=== PATIENT | female | born 1955 | race Caucasian/White ===

== ENCOUNTER 2016-12-27 07:57 | Day surgery (SDC) | payer BC ==
[2016-12-21 15:37] VITALS: BMI 32.9
[~2016-12-27 07:57] MED LIST: LACTATED RINGERS 1,000 ML IV SCH
[2016-12-27 09:00] VITALS: TEMP 97.9
[2016-12-27] MEDS ORDERED: LIDOCAINE 1% 20 ML VIAL (10MG/ML) FOR IV START INTRADERMA ONE (09:09)
[2016-12-27] MEDS ORDERED: ONDANSETRON 4 MG/2 ML VIAL ONE (09:21)
[2016-12-27] MEDS ORDERED: PROPOFOL 10 MG/ML 20 ML VIAL IV ONE (09:21)
[2016-12-27] MEDS ORDERED: MIDAZOLAM 2 MG/2 ML VIAL ONE (09:21)
[2016-12-27] MEDS ORDERED: fentaNYL (PF) 50 MCG/ML 2 ML AMP ONE (09:21)
[2016-12-27 09:49] VITALS: RESP 16
--- NOTE | 2016-12-27 09:53 | P.PCN ---
Date of Procedure: 12/27/16 Procedure(s) Performed: Procedure: Colonoscopy and polypectomy. Preoperative diagnosis: Screening for neoplasia, patient has family history of colon cancer in her father. Postoperative diagnosis: 1. Mild sigmoid diverticulosis with no evidence of acute diverticulitis or strictures. 2. Small distal sigmoid polyp snared but no large polyps or cancer. Preparation: HalfLytely prep. Sedation: Was provided by anesthesia. Brief clinical history: The patient is a 61-year-old female who is scheduled for this evaluation for screening for neoplasia because of family history of colon cancer in her father. The patient had a prior colonoscopy around 7 years ago. At this time, she has no abdominal complaints, bleeding or anemia. Procedure: With the patient on her left lateral decubitus position and after informed consent and adequate sedation, the perianal area was inspected and it did not show any fissures or fistulas. There were no masses felt on digital rectal examination. The Olympus CFQ 160L video colonoscope was then inserted in the rectum in the usual fashion and advanced to the cecum. There were few diverticular orifices seen scattered in the sigmoid but I saw no evidence of acute diverticulitis or strictures. In the distal sigmoid, there was a small polyp which was snared and retrieved by suction but there were no large polyps or cancer. I retroflexed endoscope in the rectum before the endoscope was withdrawn. The patient tolerated the procedure well. Plan: The patient was reassured. Discussed dietary measures. We will await pathology results. She will follow-up with you as planned and I recommended a repeat exam in 5 years.
[2016-12-27 10:06] VITALS: BP 133/64; PULSE 48
== END 2016-12-27 10:35 | disposition home or self-care (01) ==
LOC: ORWHC2ENDO 07:57
DX: Z12.11 Encounter for screening for malignant neoplasm of colon (principal); D12.5 Benign neoplasm of sigmoid colon; K57.30 Diverticulosis of large intestine without perforation or abscess without bleeding; I10 Essential (primary) hypertension; Q87.81 Alport syndrome; Z80.0 Family history of malignant neoplasm of digestive organs; Z79.1 Long term (current) use of non-steroidal anti-inflammatories (NSAID); Z79.899 Other long term (current) drug therapy; Z90.710 Acquired absence of both cervix and uterus
CPT/HCPCS: 88305; 45385; J2250; J2405; J3010; J2704; 99153

== ENCOUNTER 2017-12-25 22:45 | Inpatient (IN) | payer BC ==
[2017-12-25] MEDS ORDERED: SODIUM CHLORIDE 0.9% 1,000 ML IV STA (23:11)
[2017-12-25] MEDS ORDERED: ONDANSETRON 4 MG/2 ML VIAL IVP STA (23:11)
[2017-12-25] MEDS ORDERED: cefTRIAXone IN SWFI 1,000 MG/10 ML SYRINGE IVP STA (23:11)
--- NOTE | 2017-12-25 23:16 | ED ---
General Adult HPI - General Source: patient, family, RN notes reviewed Mode of arrival: wheelchair Limitations: no limitations <Jenn Posey - Last Filed: 12/26/17 02:26> <Vitaly Otoole - Last Filed: 12/28/17 09:54> - General Chief complaint: Recheck/Abnormal Lab/Rx Stated complaint: Dehydration Time Seen by Provider: 12/25/17 23:02 - History of Present Illness Initial comments: 62-year-old female presents to the emergency Department chief complaint of chemo side effects. The patient started her first round of chemo this week. Over the weekend she's not been able to tolerate any food she's only been drinking and having insurance. She just is progressively gotten more and more sick and warm or tired today. She denies any fever chills. They were concerned because she just seems to be getting worse and worse so they thought that they should be evaluated. This is her first week of chemo. She sees Dr. Gusman and has an appointment in the morning. She is currently being treated with antibiotics for UTI. Patient denies any recent fever, chills, shortness of breath, chest pain, back pain, abdominal pain, nausea vomiting, numbness or tingling, dysuria or hematuria, constipation or diarrhea, headaches or visual changes, or any other current symptoms. (Jenn Posey) - Related Data Home Medications Medication Instructions Recorded Confirmed Calcium Carbonate [Calcium] 600 mg PO DAILY 12/21/16 12/21/16 Cranberry Fruit Extract [Cranberry] 500 mg PO DAILY 12/21/16 12/21/16 Fish Oil/Dha/Epa [Fish Oil 1,200 1 each PO DAILY 12/21/16 12/21/16 mg Fish Oil] Ibuprofen [Motrin] 600 mg PO HS 12/21/16 12/27/16 Multivitamins, Thera [Multivitamin] 1 tab PO DAILY 12/21/16 12/21/16 Naproxen Sodium [Aleve] 220 mg PO DAILY 12/21/16 12/21/16 Cetirizine HCl [Zyrtec] 10 mg PO DAILY 12/26/17 12/26/17 LORazepam [Ativan] 1 mg PO QID 12/26/17 12/26/17 Lactulose 10 gm PO TID 12/26/17 12/26/17 Morphine Sulfate ER [Ms Contin 30 mg PO Q12HR 12/26/17 12/26/17 30Mg] Morphine Sulfate Ir [MSIR] 15 mg PO QID PRN 12/26/17 12/26/17 Ondansetron HCl [Ondansetron HCl] 8 mg PO TID PRN 12/26/17 12/26/17 Allergies Allergy/AdvReac Type Severity Reaction Status Date / Time No Known Allergies Allergy Verified 12/21/16 15:13 Review of Systems ROS Other: All systems not noted in ROS Statement are negative. <Jenn Posey - Last Filed: 12/26/17 02:26> ROS Other: All systems not noted in ROS Statement are negative. <Vitaly Otoole - Last Filed: 12/28/17 09:54> ROS Statement: Those systems with pertinent positive or pertinent negative responses have been documented in the HPI. Past Medical History Past Medical History: Cancer, Hypertension, Renal Disease Additional Past Medical History / Comment(s): Alports syndrome,carcinoma,chemo port History of Any Multi-Drug Resistant Organisms: None Reported Past Surgical History: Hysterectomy Additional Past Surgical History / Comment(s): D&C Past Anesthesia/Blood Transfusion Reactions: Motion Sickness, Postoperative Nausea & Vomiting (PONV) Past Psychological History: No Psychological Hx Reported Smoking Status: Never smoker Past Alcohol Use History: None Reported Past Drug Use History: None Reported - Past Family History Mother Family Medical History: Cancer Additional Family Medical History / Comment(s): colon cancer Father Family Medical History: Cancer <Jenn Posey - Last Filed: 12/26/17 02:26> General Exam Limitations: no limitations <Jenn Posey - Last Filed: 12/26/17 02:26> <Vitaly Otoole - Last Filed: 12/28/17 09:54> - General Exam Comments Initial Comments: General: The patient is awake and alert, in no distress, and does not appear acutely ill. Eye: Pupils are equal, round and reactive to light, extra-ocular movements are intact; there is normal conjunctiva bilaterally. No signs of icterus. Ears, nose, mouth and throat: There are moist mucous membranes. Neck: The neck is supple, there is no tenderness . Cardiovascular: There is a regular rate and rhythm. No murmur, rub or gallop is appreciated. Respiratory: Lungs are clear to auscultation, respirations are non-labored, breath sounds are equal. No wheezes, stridor, rales, or rhonchi. Gastrointestinal: Soft, non-distended, non-tender abdomen without masses or organomegaly noted. There is no rebound or guarding present. No CVA tenderness. Bowel sounds are unremarkable. Back: There is no tenderness to palpation in the midline. There is no obvious deformity. No rashes noted. Musculoskeletal: Normal ROM, no tenderness, There is no pedal edema. There is no calf tenderness or swelling. Sensation intact. Pulses equal bilaterally 2+. Neurological: CN II-XII intact, There are no obvious motor or sensory deficits. Coordination appears grossly intact. Speech is normal. Skin: Skin is warm and dry and no rashes or lesions are noted. Psychiatric: Cooperative, appropriate mood & affect, normal judgment. (Jenn Posey) Vital Signs 12/25/17 12/26/17 12/26/17 22:51 00:16 01:52 Temperature 97.1 F L 101.3 F H Pulse Rate 72 121 H 118 H Respiratory 16 20 20 Rate Blood Pressure 100/56 97/56 91/55 O2 Sat by Pulse 96 95 95 Oximetry 12/26/17 12/26/17 02:23 03:04 Temperature 98.8 F Pulse Rate 116 H 111 H Respiratory 20 20 Rate Blood Pressure 93/66 92/51 O2 Sat by Pulse 96 94 L Oximetry Medical Decision Making - Lab Data Result diagrams: 12/25/17 23:50 12/25/17 23:50 <Jenn Posey - Last Filed: 12/26/17 02:26> - Lab Data Result diagrams: 12/28/17 08:06 12/27/17 08:08 <Vitaly Otoole - Last Filed: 12/28/17 09:54> - Medical Decision Making 62-year-old female presents emergency 5 chief complaint of dehydration. This time patient does appear to be septic. This time antibiotics have been started. We did give her fluids as well. At this time we will admit the patient for continued care. Discussed the patient and family is in agreement with plan. (Jenn Posey) I saw this patient in conjunction with the physician placement assistant. I performed independent history and physical exam. Agree with case management. (Vitaly Otoole) - Lab Data Lab Results 12/25/17 12/25/17 12/25/17 Range/Units 23:50 23:50 23:50 WBC 0.4 L* (3.8-10.6) k/uL RBC 3.37 L (3.80-5.40) m/uL Hgb 9.5 L (11.4-16.0) gm/dL Hct 29.8 L (34.0-46.0) % MCV 88.3 (80.0-100.0) fL MCH 28.2 (25.0-35.0) pg MCHC 31.9 (31.0-37.0) g/dL RDW 12.3 (11.5-15.5) % Plt Count 10 L* (150-450) k/uL Neutrophils % [employer] Lymphocytes % [employer] Monocytes % [employer] Eosinophils % [employer] Basophils % [employer] Neutrophils # [employer]ER Lymphocytes # [employer] Monocytes # [employer] Eosinophils # [employer] Basophils # [employer] Differential Comment Manual Slide Review Performed Sodium 135 L (137-145) mmol/L Potassium 3.8 (3.5-5.1) mmol/L Chloride 102 (98-107) mmol/L Carbon Dioxide 20 L (22-30) mmol/L Anion Gap 13 mmol/L BUN 40 H (7-17) mg/dL Creatinine 2.00 H (0.52-1.04) mg/dL Est GFR (MDRD) Af Amer 31 (>60 ml/min/1.73 sqM) Est GFR (MDRD) Non-Af 25 (>60 ml/min/1.73 sqM) Glucose 123 H (74-99) mg/dL Plasma Lactic Acid Kw[place] (0.7-2.0) mmol/L Calcium 8.4 (8.4-10.2) mg/dL Total Bilirubin 0.4 (0.2-1.3) mg/dL AST 75 H (14-36) U/L ALT 69 H (9-52) U/L Alkaline Phosphatase 76 (38-126) U/L Total Protein 5.5 L (6.3-8.2) g/dL Albumin 2.7 L (3.5-5.0) g/dL Urine Color Urine Appearance (Clear) Urine pH (5.0-8.0) Ur Specific [place] (1.001-1.035) Urine Protein (Negative) Urine Glucose (UA) (Negative) Urine Ketones (Negative) Urine Blood (Negative) Urine Nitrite (Negative) Urine Bilirubin (Negative) Urine Urobilinogen (<2.0) mg/dL Ur Leukocyte Esterase (Negative) Urine RBC (0-5) /hpf Urine WBC (0-5) /hpf Ur Squamous Epith Cells (0-4) /hpf Amorphous Sediment (None) /hpf Urine Bacteria (None) /hpf Hyaline Casts (0-2) /lpf Granular Casts (0) /lpf Urine Mucus (None) /hpf Influenza Type A RNA Not Detected (Not Detectd) Influenza Type B (PCR) Not Detected (Not Detectd) 12/25/17 12/26/17 Range/Units 23:50 01:28 WBC (3.8-10.6) k/uL RBC (3.80-5.40) m/uL Hgb (11.4-16.0) gm/dL Hct (34.0-46.0) % MCV (80.0-100.0) fL MCH (25.0-35.0) pg MCHC (31.0-37.0) g/dL RDW (11.5-15.5) % Plt Count (150-450) k/uL Neutrophils % Lymphocytes % Monocytes % Eosinophils % Basophils % Neutrophils # Lymphocytes # Monocytes # Eosinophils # Basophils # Differential Comment Manual Slide Review Sodium (137-145) mmol/L Potassium (3.5-5.1) mmol/L Chloride (98-107) mmol/L Carbon Dioxide (22-30) mmol/L Anion Gap mmol/L BUN (7-17) mg/dL Creatinine (0.52-1.04) mg/dL Est GFR (MDRD) Af Amer (>60 ml/min/1.73 sqM) Est GFR (MDRD) Non-Af (>60 ml/min/1.73 sqM) Glucose (74-99) mg/dL Plasma Lactic Acid [place] 1.5 (0.7-2.0) mmol/L Calcium (8.4-10.2) mg/dL Total Bilirubin (0.2-1.3) mg/dL AST (14-36) U/L ALT (9-52) U/L Alkaline Phosphatase (38-126) U/L Total Protein (6.3-8.2) g/dL Albumin (3.5-5.0) g/dL Urine Color Yellow Urine Appearance Turbid H (Clear) Urine pH 5.5 (5.0-8.0) Ur Specific [place] 1.017 (1.001-1.035) Urine Protein 2+ H (Negative) Urine Glucose (UA) 1+ H (Negative) Urine Ketones Negative (Negative) Urine Blood Moderate H (Negative) Urine Nitrite Negative (Negative) Urine Bilirubin Negative (Negative) Urine Urobilinogen 3.0 (<2.0) mg/dL Ur Leukocyte Esterase Negative (Negative) Urine RBC 6 H (0-5) /hpf Urine WBC 14 H (0-5) /hpf Ur Squamous Epith Cells 1 (0-4) /hpf Amorphous Sediment Rare H (None) /hpf Urine Bacteria Few H (None) /hpf Hyaline Casts 4 H (0-2) /lpf Granular Casts 43 (0) /lpf Urine Mucus Rare H (None) /hpf Influenza Type A RNA (Not Detectd) Influenza Type B (PCR) (Not Detectd) Disposition <Jenn Posey - Last Filed: 12/26/17 02:26> <Vitaly Otoole - Last Filed: 12/28/17 09:54> Clinical Impression: Febrile neutropenia, Acute renal injury, Hypotension Disposition: ADMITTED IP TO THIS HOSP Condition: Serious
[2017-12-26] MEDS ORDERED: ACETAMINOPHEN IV (For NPO) 1,000 MG in EMPTY BAG 1 BAG IVPB ONE (00:16)
[2017-12-26] MEDS ORDERED: SODIUM CHLORIDE 0.9% 1,000 ML IV STA ×2 (00:17→01:13)
[2017-12-26 00:21] LABS: HCT 29.8 % (34.0-46.0); HGB 9.5 gm/dL (11.4-16.0); MCH 28.2 pg (25.0-35.0); MCHC 31.9 g/dL (31.0-37.0); MCV 88.3 fL (80.0-100.0); Mean Platelet Volume 13.1; RBC 3.37 m/uL (3.80-5.40); RDW 12.3 % (11.5-15.5)
[2017-12-26 00:28] LABS: WBC 0.4 k/uL (3.8-10.6)
[2017-12-26 00:38] LABS: Albumin 2.7 g/dL (3.5-5.0); Calcium 8.4 mg/dL (8.4-10.2); Total Bilirubin 0.4 mg/dL (0.2-1.3); Total Protein 5.5 g/dL (6.3-8.2)
[2017-12-26 00:41] LABS: Potassium 3.8 mmol/L (3.5-5.1)
--- NOTE | 2017-12-26 00:44 | XR ---
EXAMINATION TYPE: XR chest 2V DATE OF EXAM: 12/26/2017 COMPARISON: NONE HISTORY: Cough TECHNIQUE: Frontal and lateral views of the chest are obtained. FINDINGS: There is some linear density at the lung bases and more on the right side. There is elevat ed right diaphragm. There is left central venous catheter with tip in the superior vena cava. There i s no heart failure. Heart size is normal. Bony thorax is intact. IMPRESSION: Subsegmental atelectasis at the lung bases and more on the right side. Elevated right di aphragm could relate to partial paralysis. No heart failure.
[2017-12-26 00:47] LABS: Platelet Count 10 k/uL (150-450)
[2017-12-26] MEDS ORDERED: CEFEPIME 1 GM in SODIUM CHLORIDE 0.9% 50 ML IVPB STA (01:12)
[2017-12-26] MEDS ORDERED: VANCOMYCIN IV PER PHARMACY 1 EACH MISC MISCELLANE PRN (01:12)
[2017-12-26] MEDS ORDERED: VANCOMYCIN 1,500 MG in SODIUM CHLORIDE 0.9% 250 ML IVPB STA (01:16)
[2017-12-26] MEDS ORDERED: IBUPROFEN 400 MG TAB PO PRN (01:55)
[2017-12-26] MEDS ORDERED: ACETAMINOPHEN TAB 325 MG TAB PO PRN (01:55)
[2017-12-26] MEDS ORDERED: NALOXONE 0.4 MG/ML 1 ML VIAL IV PRN (01:55)
[2017-12-26 01:56] LABS: Amorphous Sediment,Urine Rare /hpf; Appearance,Urine Turbid (Clear); Bacteria,Urine Few /hpf; Bilirubin,Urine Negative (Negative); Blood,Urine Moderate (Negative); Color,Urine Yellow; Glucose,Urine (UA) 1+ (Negative); Granular Casts,Urine 43 /lpf (0); Hyaline Casts,Urine 4 /lpf (0-2); Ketones,Urine Negative (Negative); Leukocyte Esterase,Urine Negative (Negative); Mucus,Urine Rare /hpf; Nitrite,Urine Negative (Negative); PH, Urine 5.5 (5.0-8.0); Protein,Urine 2+ (Negative); RBC,Urine 6 /hpf (0-5); Specific Gravity,Urine 1.017 (1.001-1.035); Squamous Epithelial Cell,Urine 1 /hpf (0-4); WBC,Urine 14 /hpf (0-5)
[2017-12-26 03:46] VITALS: RESP 16
[2017-12-26 03:51] VITALS: BMI 33.7
[2017-12-26] MEDS: SODIUM CHLORIDE 0.9% 1,000 ML IV SCH ×3 (06:01→16:06)
[2017-12-26] MEDS ORDERED: FAMOTIDINE 20 MG TAB PO SCH (09:00)
[2017-12-26] MEDS ORDERED: LISINOPRIL 10 MG TAB PO SCH (09:00)
[2017-12-26] MEDS: CALCIUM CARBONATE 500 MG CHEWABLE PO SCH (09:00)
[2017-12-26] MEDS: NON-FORMULARY DRUG (Cranberry Fruit Extract [Cranberry] 500 MG) PO SCH (09:01)
[2017-12-26] MEDS: MULTIVITAMINS, THERA 1 EACH TAB PO SCH (09:01)
[2017-12-26] MEDS: NON-FORMULARY DRUG (Fish Oil/Dha/Epa [Fish Oil 1,200 Mg Fish Oil] 1 EACH) PO SCH (09:01)
[2017-12-26] MEDS ORDERED: CEFEPIME 2 GM in SODIUM CHLORIDE 0.9% 50 ML IVPB SCH (10:00)
--- NOTE | 2017-12-26 12:12 | P.HPIM ---
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 Patient blood cultures came back positive for gram-negative rods although urine is not impressive patient denied any abdominal pain patient's vancomycin was discontinued and Cipro will be continued. Infectious disease will be consulted and repeat blood cultures today and tomorrow will be obtained patient is complaining of cough without any significant sputum production patient denied any dysuria suprapubic pain. 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 Patient's nonsteroidal anti-inflammatory cell lisinopril will be discussed new patient is hypotensive at this time Review of Systems REVIEW OF SYSTEMS: CONSTITUTIONAL: As mentioned in HPI HEENT: No recent visual problems or hearing problems. Denied any sore throat. CARDIOVASCULAR: No chest pain, orthopnea, PND, no palpitations, no syncope. PULMONARY: No shortness of breath, no cough, no hemoptysis. GASTROINTESTINAL: No diarrhea, no nausea, no vomiting, no abdominal pain. Normoactive bowel sounds. NEUROLOGICAL: No headaches, no weakness, no numbness. HEMATOLOGICAL: Denies any bleeding or petechiae. GENITOURINARY: Denies any burning micturition, frequency, or urgency. MUSCULOSKELETAL/RHEUMATOLOGICAL: Denies any joint pain, swelling, or any muscle pain. ENDOCRINE: Denies any polyuria or polydipsia. The rest of the 14-point review of systems is negative. Past Medical History Past Medical History: Cancer, Hypertension, Renal Disease Additional Past Medical History / Comment(s): Alports syndrome,carcinoma,chemo port History of Any Multi-Drug Resistant Organisms: None Reported Past Surgical History: Hysterectomy Additional Past Surgical History / Comment(s): D&C Past Anesthesia/Blood Transfusion Reactions: Motion Sickness, Postoperative Nausea & Vomiting (PONV) Past Psychological History: No Psychological Hx Reported Smoking Status: Never smoker Past Alcohol Use History: None Reported Past Drug Use History: None Reported - Past Family History Mother Family Medical History: Cancer Additional Family Medical History / Comment(s): colon cancer Father Family Medical History: Cancer Medications and Allergies Home Medications Medication Instructions Recorded Confirmed Type Calcium Carbonate [Calcium] 600 mg PO DAILY 12/21/16 12/21/16 History Cranberry Fruit Extract [Cranberry] 500 mg PO DAILY 12/21/16 12/21/16 History Fish Oil/Dha/Epa [Fish Oil 1,200 1 each PO DAILY 12/21/16 12/21/16 History mg Fish Oil] Ibuprofen [Motrin] 600 mg PO HS 12/21/16 12/27/16 History Multivitamins, Thera [Multivitamin] 1 tab PO DAILY 12/21/16 12/21/16 History Naproxen Sodium [Aleve] 220 mg PO DAILY 12/21/16 12/21/16 History Cetirizine HCl [Zyrtec] 10 mg PO DAILY 12/26/17 12/26/17 History LORazepam [Ativan] 1 mg PO QID 12/26/17 12/26/17 History Lactulose 10 gm PO TID 12/26/17 12/26/17 History Morphine Sulfate ER [Ms Contin 30 mg PO Q12HR 12/26/17 12/26/17 History 30Mg] Morphine Sulfate Ir [MSIR] 15 mg PO QID PRN 12/26/17 12/26/17 History Ondansetron HCl [Ondansetron HCl] 8 mg PO TID PRN 12/26/17 12/26/17 History Allergies Allergy/AdvReac Type Severity Reaction Status Date / Time No Known Allergies Allergy Verified 12/21/16 15:13 Physical Exam Vitals: Vital Signs Temp Pulse Pulse Resp BP BP Pulse Ox 12/26/17 07:00 99.7 F H 113 H 16 100/69 92 L 12/26/17 03:45 98.1 F 108 H 16 114/67 96 12/26/17 03:04 111 H 20 92/51 94 L 12/26/17 02:23 98.8 F 116 H 20 93/66 96 12/26/17 01:52 118 H 20 91/55 95 12/26/17 00:16 101.3 F H 121 H 20 97/56 95 12/25/17 22:51 97.1 F L 72 16 100/56 96 Intake and Output 12/25/17 12/26/17 12/26/17 22:59 06:59 14:59 Intake Total 2500 Output Total 400 Balance 2100 Intake: Amount of Fluid Infused ( 2500 ml) Output: Urine 400 Other: Weight 81.647 kg 81 kg PHYSICAL EXAMINATION: GENERAL: The patient is alert and oriented x3, quite tired and sleepy HEENT: Pupils are round and equally reacting to light. EOMI. No scleral icterus. No conjunctival pallor. Normocephalic, atraumatic. No pharyngeal erythema. No thyromegaly. CARDIOVASCULAR: S1 and S2 present. No murmurs, rubs, or gallops. PULMONARY: Chest is clear to auscultation, no wheezing or crackles. ABDOMEN: Soft, nontender, nondistended, normoactive bowel sounds. No palpable organomegaly. MUSCULOSKELETAL: No joint swelling or deformity. EXTREMITIES: No cyanosis, clubbing, or pedal edema. NEUROLOGICAL: Gross neurological examination did not reveal any focal deficits. SKIN: No rashes. Results CBC & Chem 7: 12/25/17 23:50 12/25/17 23:50 Labs: Abnormal Lab Results - Last 24 Hours (Table) 12/25/17 12/25/17 12/26/17 Range/Units 23:50 23:50 01:28 WBC 0.4 L* (3.8-10.6) k/uL RBC 3.37 L (3.80-5.40) m/uL Hgb 9.5 L (11.4-16.0) gm/dL Hct 29.8 L (34.0-46.0) % Plt Count 10 L* (150-450) k/uL Neutrophils # 0.3 L (1.3-7.7) k/uL Lymphocytes # 0.0 L (1.0-4.8) k/uL Sodium 135 L (137-145) mmol/L Carbon Dioxide 20 L (22-30) mmol/L BUN 40 H (7-17) mg/dL Creatinine 2.00 H (0.52-1.04) mg/dL Glucose 123 H (74-99) mg/dL AST 75 H (14-36) U/L ALT 69 H (9-52) U/L Total Protein 5.5 L (6.3-8.2) g/dL Albumin 2.7 L (3.5-5.0) g/dL Urine Appearance Turbid H (Clear) Urine Protein 2+ H (Negative) Urine Glucose (UA) 1+ H (Negative) Urine Blood Moderate H (Negative) Urine RBC 6 H (0-5) /hpf Urine WBC 14 H (0-5) /hpf Amorphous Sediment Rare H (None) /hpf Urine Bacteria Few H (None) /hpf Hyaline Casts 4 H (0-2) /lpf Urine Mucus Rare H (None) /hpf Microbiology - Last 24 Hours (Table) 12/25/17 23:50 Blood Culture Gram Stain - Preliminary Blood 12/25/17 23:50 Blood Culture - Final Blood Thrombosis Risk Factor Assmnt - Choose All That Apply Any of the Below Risk Factors Present?: No Each Risk Factor Represents 2 Points: Age 61-74 years Thrombosis Risk Factor Assessment Total Risk Factor Score: 2 Thrombosis Risk Factor Assessment Level: Low Risk Assessment and Plan Plan: - sepsis and bacteremia: Source is probably urinary tract infection since bacteremia with gram-negative rods. Repeat blood cultures will be obtained patient will be continued on cefepime and question will be discontinued infectious disease will be consulted concerning bacteremia. 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
[2017-12-26] MEDS: MORPHINE SULFATE IR 15 MG TABLET PO PRN (14:48)
--- NOTE | 2017-12-26 17:26 | P.CONS ---
History of Present Illness - Reason for Consult Consult date: 12/26/17 febrile neutropenia Requesting physician: Vitaly Otoole - Chief Complaint poor oral intake - History of Present Illness Pt is a very pleasant female pt of Dr. Kiran at [facility] and is following with Dr. Gusman who will monitor her counts and manage side effects. She presented with epigastric pain, x 1 year, CT and U/S in 2015 were not diagnostic , she had laparoscopic cholecystectomy in June 2017 that did not relieve symptoms. 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 She was seen by Surgical Oncologist Dr. Eliel Goddard at [facility] in [place] and not felt not to be a surgical candidate, seen by medical Oncologist Dr. Kiran, neodajuvant chemotherapy with AIM regimen , dose reduced ifosamide 25% due to poor renal function, was recommended pt is s /p 1st cycle with neulasta on 12/19. Over the last 4 days her appetite cont to decline, oral intake minimal, she was having SOB on exertion, nausea and a few episodes of diarrhea, she became weaker, she has had fever since admit, CBC reviewed from yesterday was very low. 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),carcinoma,chemo port History of Any Multi-Drug Resistant Organisms: None Reported Past Surgical History: Hysterectomy Additional Past Surgical History / Comment(s): D&C Past Anesthesia/Blood Transfusion Reactions: Motion Sickness, Postoperative Nausea & Vomiting (PONV) Past Psychological History: No Psychological Hx Reported Smoking Status: Never smoker Past Alcohol Use History: None Reported Past Drug Use History: None Reported - Past Family History Mother Family Medical History: Cancer Additional Family Medical History / Comment(s): colon cancer Father Family Medical History: Cancer Medications and Allergies Home Medications Medication Instructions Recorded Confirmed Type Calcium Carbonate [Calcium] 600 mg PO DAILY 12/21/16 12/21/16 History Cranberry Fruit Extract [Cranberry] 500 mg PO DAILY 12/21/16 12/21/16 History Fish Oil/Dha/Epa [Fish Oil 1,200 1 each PO DAILY 12/21/16 12/21/16 History mg Fish Oil] Ibuprofen [Motrin] 600 mg PO HS 12/21/16 12/27/16 History Multivitamins, Thera [Multivitamin] 1 tab PO DAILY 12/21/16 12/21/16 History Naproxen Sodium [Aleve] 220 mg PO DAILY 12/21/16 12/21/16 History Cetirizine HCl [Zyrtec] 10 mg PO DAILY 12/26/17 12/26/17 History LORazepam [Ativan] 1 mg PO QID 12/26/17 12/26/17 History Lactulose 10 gm PO TID 12/26/17 12/26/17 History Morphine Sulfate ER [Ms Contin 30 mg PO Q12HR 12/26/17 12/26/17 History 30Mg] Morphine Sulfate Ir [MSIR] 15 mg PO QID PRN 12/26/17 12/26/17 History Ondansetron HCl [Ondansetron HCl] 8 mg PO TID PRN 12/26/17 12/26/17 History Allergies Allergy/AdvReac Type Severity Reaction Status Date / Time No Known Allergies Allergy Verified 12/21/16 15:13 Physical Exam Vitals: Vital Signs Temp Pulse Pulse Resp BP BP Pulse Ox 12/26/17 16:15 99.3 F 101 H 118/69 12/26/17 15:00 98.1 F 108 H 16 110/73 94 L 12/26/17 07:00 99.7 F H 113 H 16 100/69 92 L 12/26/17 03:45 98.1 F 108 H 16 114/67 96 12/26/17 03:04 111 H 20 92/51 94 L 12/26/17 02:23 98.8 F 116 H 20 93/66 96 12/26/17 01:52 118 H 20 91/55 95 12/26/17 00:16 101.3 F H 121 H 20 97/56 95 12/25/17 22:51 97.1 F L 72 16 100/56 96 Intake and Output 12/26/17 12/26/17 12/26/17 06:59 14:59 22:59 Intake Total 2500 Output Total 400 Balance 2100 Intake: Amount of Fluid Infused ( 2500 ml) Output: Urine 400 Other: Voiding Method Indwelling Catheter # Voids 0 # Bowel Movements 0 Weight 81 kg - Constitutional General appearance: average body habitus, cooperative, mild distress - EENT Eyes: anicteric sclerae, normal appearance ENT: pharyngeal erythema - Neck Neck: no lymphadenopathy - Respiratory Respiratory: bilateral: CTA - Cardiovascular Heart sounds: normal: S1, S2 leg Peripheral Edema: bilateral: Trace - Gastrointestinal General gastrointestinal: no absent bowel sounds, no decreased bowel sounds, distended, no hepatomegaly, no hyperactive bowel sounds, normal bowel sounds, no organomegaly, no rigid, no scaphoid, soft, no splenomegaly, tenderness, no umbilical hernia, no ventral hernia - Integumentary Integumentary: normal - Neurologic Neurologic: CNII-XII intact - Musculoskeletal Musculoskeletal: generalized weakness - Psychiatric Psychiatric: A&O x's 3, appropriate affect, intact judgment & insight Results CBC & Chem 7: 12/25/17 23:50 12/25/17 23:50 Labs: Abnormal Lab Results - Last 24 Hours (Table) 12/25/17 12/25/17 12/26/17 Range/Units 23:50 23:50 01:28 WBC 0.4 L* (3.8-10.6) k/uL RBC 3.37 L (3.80-5.40) m/uL Hgb 9.5 L (11.4-16.0) gm/dL Hct 29.8 L (34.0-46.0) % Plt Count 10 L* (150-450) k/uL Neutrophils # 0.3 L (1.3-7.7) k/uL Lymphocytes # 0.0 L (1.0-4.8) k/uL Sodium 135 L (137-145) mmol/L Carbon Dioxide 20 L (22-30) mmol/L BUN 40 H (7-17) mg/dL Creatinine 2.00 H (0.52-1.04) mg/dL Glucose 123 H (74-99) mg/dL AST 75 H (14-36) U/L ALT 69 H (9-52) U/L Total Protein 5.5 L (6.3-8.2) g/dL Albumin 2.7 L (3.5-5.0) g/dL Urine Appearance Turbid H (Clear) Urine Protein 2+ H (Negative) Urine Glucose (UA) 1+ H (Negative) Urine Blood Moderate H (Negative) Urine RBC 6 H (0-5) /hpf Urine WBC 14 H (0-5) /hpf Amorphous Sediment Rare H (None) /hpf Urine Bacteria Few H (None) /hpf Hyaline Casts 4 H (0-2) /lpf Urine Mucus Rare H (None) /hpf Microbiology - Last 24 Hours (Table) 12/25/17 23:50 Blood Culture Gram Stain - Preliminary Blood 12/26/17 01:28 Urine Culture - Preliminary Urine,Catheterized 12/25/17 23:50 Blood Culture - Final Blood Chest x-ray: report reviewed Assessment and Plan (1) Febrile neutropenia Narrative/Plan: No GCSF at this time, cont empiric antibiotics, pancultures pending. Current Visit: Yes Status: Acute Priority: High Code(s): D70.9 - NEUTROPENIA, UNSPECIFIED; R50.81 - FEVER PRESENTING WITH CONDITIONS CLASSIFIED ELSEWHERE SNOMED Code(s): 426238641 (2) Pancytopenia due to antineoplastic chemotherapy Narrative/Plan: No GCSF for now as she received neulasta 7 days ago. STAT CBC requested, pt may need blood products. Current Visit: Yes Status: Acute Priority: High Code(s): D61.810 - ANTINEOPLASTIC CHEMOTHERAPY INDUCED PANCYTOPENIA; T45.1X5A - ADVERSE EFFECT OF ANTINEOPLASTIC AND IMMUNOSUP DRUGS, INIT SNOMED Code(s): 757009459552146 (3) Leiomyosarcoma Narrative/Plan: S/P 1st cycle of chemotherapy, she may need to be considered for further dose reduction but, that will be decided by primary Oncologist Dr. Kiran. Will contact and update on pt condition. Current Visit: Yes Status: Acute Priority: High Code(s): C49.9 - MALIGNANT NEOPLASM OF CONNECTIVE AND SOFT TISSUE, UNSP SNOMED Code(s): 696804042
[2017-12-26 18:30] LABS: HCT 26.4 % (34.0-46.0); HGB 8.5 gm/dL (11.4-16.0); MCH 28.3 pg (25.0-35.0); MCHC 32.1 g/dL (31.0-37.0); Mean Platelet Volume 11.5; RDW 12.4 % (11.5-15.5)
[2017-12-26 18:36] LABS: Platelet Count 8 k/uL (150-450); WBC 0.8 k/uL (3.8-10.6)
[2017-12-26] MEDS: SALT AND SODA MOUTHWASH 1,000 ML PO SCH (22:27)
[2017-12-26] MEDS: MORPHINE SULFATE ER 30 MG TABLET PO SCH (22:28)
[2017-12-26] MEDS: CEFEPIME 2 GM in SODIUM CHLORIDE 0.9% 50 ML IVPB SCH (22:28)
[2017-12-26] MEDS: MAG HYDROX/AL HYDROX/SIMETH 30 ML, diphenhydrAMINE ELIXIR 75 MG, LIDOCAINE VISCOUS 30 ML PO SCH ×3 (22:30)
--- NOTE | 2017-12-27 00:01 | CONS ---
CONSULTATION DATE OF SERVICE: 12/26/2017 REASON FOR CONSULTATION: 1. Febrile neutropenia. 2. Bacteremia. HISTORY OF PRESENT ILLNESS: The patient is a 62-year-old female who has been recently diagnosed with high- grade leiomyosarcoma on a biopsy November 10, 2017. The patient did have a staging CT on November 06 that showed no metastatic disease. The patient apparently has been evaluated at the [facility] by an oncology surgeon; however, no surgical intervention was recommended; rather she was advised neoadjuvant chemotherapy with AIM regimen. The patient received her first cycle on the December 19. Over the last few days the patient has been feeling weak and tired, no energy. Her appetite has been very low, only taking some fluids and Ensure. Denies significant sores in her mouth, though. She felt nauseated but no vomiting. Did have some vague lower abdominal pain, more of a dull aching, 3 to 4 out of 10 and no radiation. Did have some diarrhea, though. No significant burning or frequency of urine. Apparently the patient has been on antibiotic in the outpatient setting. With these symptoms, the patient was brought to the ER with concern about possible dehydration. The patient was afebrile on presentation; did spike a fever of 101.3 with a subsequent fever of 99.7. She was noticed to be tachycardic and her white count was 0.4, platelet count was about 10 and creatinine 2.0. Liver enzymes are mildly elevated. Urine was not significantly positive. Influenza serology was negative. A chest x-ray was reported to be negative. The patient was initially treated with Rocephin and vancomycin, subsequently switched to cefepime 2 grams daily, and ID was consulted for further recommendation regarding antibiotic therapy. REVIEW OF SYSTEMS: CONSTITUTIONAL: Positive for weakness and chills. EYES: No complaint. ENT: No complaint. RESPIRATORY: Mild cough. CARDIOVASCULAR: No complaint. GENITOURINARY: No complaint. GASTROINTESTINAL: As per HPI. MUSCULOSKELETAL: No complaint. INTEGUMENTARY: No complaint. PSYCHOLOGICAL: No complaint. ENDOCRINE: No complaint. NEUROLOGICAL: No complaint. PAST MEDICAL HISTORY: 1. Leiomyosarcoma. 2. Hypertension. 3. Alport syndrome. 4. Chronic venous insufficiency. PAST SURGICAL HISTORY: 1. Hysterectomy. 2. D&C. 3. CT-guided biopsy of the abdominal mass. SOCIAL HISTORY: No history of smoking, drinking drug use. She is and lives with her . FAMILY HISTORY: Mother with history of colon cancer cancer. ALLERGIES: NO KNOWN DRUG ALLERGIES. CURRENT MEDICATIONS: 1. Tylenol. 2. Tums. 3. Cefepime 2 grams daily. 4. Pepcid. 5. MS Contin. 6. Theragran. 7. Narcan. 8. Zofran. 9. IV fluid. PHYSICAL EXAMINATION: Her blood pressure is 113/75 with a pulse of 108, temperature of 98.9, T-max 101 1.3. She is 95% on room air. General description is a middle-aged female up in the bed up in no distress. No tachypnea or accessory muscle of respiration use. HEENT EXAMINATION: Slight pallor. No scleral icterus. Oral mucosa membrane is moist. No significant erythema or thrush. NECK: Trachea is central. No thyromegaly. LUNGS: Unlabored breathing. Decreased breath sounds in the bases. No wheeze or crackle. HEART: S1, S2. Tachycardic. No added sounds. ABDOMEN: Soft. She is minimally tender in the left lower quadrant area. No guarding. No rigidity. No organomegaly. EXTREMITIES: No edema of the feet. SKIN EXAMINATION: No rash or mass palpable. Neurologically patient is awake, alert, oriented x3. Mood and affect normal. LABS: Hemoglobin 8.5, white count 0.8. Urine was significantly positive with a BUN of 40, creatinine 2.0. Influenza serology was negative. Chest x-ray with some right lower lobe atelectasis. No consolidation. DIAGNOSTIC IMPRESSION AND PLAN: 1. Patient with sepsis in a patient who did have a fever of 101.3. She was tachycardic with a heart rate of 108, leukopenia/neutropenia with a white count of 0.4 in a patient who has just received her first chemotherapy, is immunocompromised and also with a source of this fever likely abdominal, as the patient did have some tenderness on abdominal examination; also could be transmigration of bacteremia from her underlying chemotherapy. Will need to cover for the enteric Gram negative pathogen, now that patient does have evidence of Gram-negative bacteremia. The patient's Mediport site looks clean. Urine was not significantly positive to be responsible for this abscess and Gram-negative bacteremia. 2. Patient does have renal insufficiency. That will limit investigations that could be done to determine the cause of her abscess and use of antibiotics. Her kidney function will need to be monitored very closely. PLAN: 1. We will obtain a CT of abdomen and pelvis with oral contrast only. Will avoid IV contrast to decrease the risk of nephrotoxicity. 2. Cefepime 2 grams q.12 hours. kidney function with a creatinine clearance of about 31. 3. Aggressive IV fluids. 4. We will follow up on the clinical condition and cultures to further adjust medication if needed. Family was present at the bedside. Their questions and concerns were answered. Overall prognosis remains guarded. MMODL / IJN: [id number] /
[2017-12-27] MEDS: MORPHINE SULFATE IR 15 MG TABLET PO PRN (01:43)
[2017-12-27] MEDS: ONDANSETRON 4 MG/2 ML VIAL IVP PRN ×2 (01:47→21:39)
[2017-12-27] MEDS: SALT AND SODA MOUTHWASH 1,000 ML PO SCH ×5 (04:56→21:38)
[2017-12-27] MEDS: SODIUM CHLORIDE 0.9% 1,000 ML IV SCH ×4 (04:56→21:37)
[2017-12-27] MEDS ORDERED: VANCOMYCIN 1,500 MG in SODIUM CHLORIDE 0.9% 250 ML IVPB ONE (06:00)
[2017-12-27] MEDS: IOHEXOL 350 MG/ML 25 ML BOTTLE (ORAL USE) PO PRN ×2 (06:16→07:50)
[2017-12-27] MEDS: CEFEPIME 2 GM in SODIUM CHLORIDE 0.9% 50 ML IVPB SCH ×2 (07:56→21:38)
[2017-12-27 08:58] LABS: HCT 26.8 % (34.0-46.0); HGB 8.4 gm/dL (11.4-16.0); MCH 28.4 pg (25.0-35.0); MCHC 31.3 g/dL (31.0-37.0); MCV 90.8 fL (80.0-100.0); Mean Platelet Volume 8.3; RBC 2.96 m/uL (3.80-5.40); RDW 12.6 % (11.5-15.5)
[2017-12-27] MEDS ORDERED: CEFEPIME 2 GM in SODIUM CHLORIDE 0.9% 50 ML IVPB SCH (09:00)
[2017-12-27 09:01] LABS: Calcium 8.4 mg/dL (8.4-10.2); Potassium 3.7 mmol/L (3.5-5.1)
[2017-12-27 09:03] LABS: WBC 1.8 k/uL (3.8-10.6)
[2017-12-27] MEDS: MORPHINE SULFATE ER 30 MG TABLET PO SCH ×2 (10:34→21:38)
[2017-12-27] MEDS: FAMOTIDINE 20 MG TAB PO SCH (10:34)
[2017-12-27] MEDS: MAG HYDROX/AL HYDROX/SIMETH 30 ML, diphenhydrAMINE ELIXIR 75 MG, LIDOCAINE VISCOUS 30 ML PO SCH ×9 (10:34→21:39)
[2017-12-27] MEDS: MULTIVITAMINS, THERA 1 EACH TAB PO SCH (10:34)
[2017-12-27] MEDS: CALCIUM CARBONATE 500 MG CHEWABLE PO SCH (10:34)
[2017-12-27] MEDS: NON-FORMULARY DRUG (Fish Oil/Dha/Epa [Fish Oil 1,200 Mg Fish Oil] 1 EACH) PO SCH (10:35)
[2017-12-27 11:41] LABS: Band Neutrophils % 18 %; Lymphocytes # (M) 0.31 k/uL (1.0-4.8); Metamyelocytes # (M) 0.04 k/uL (0); Metamyelocytes % 2 %; Monocytes # (M) 0.23 k/uL (0-1.0); Myelocytes # (M) 0.23 k/uL (0); Myelocytes % 13 %; Neutrophils % (M) 38 %; Nucleated Red Blood Cells 1 /100 WBC (0-0); Total Cells Counted 200
[2017-12-27 11:42] LABS: Toxic Granulation Present
--- NOTE | 2017-12-27 11:42 | CT ---
EXAMINATION TYPE: CT abdomen pelvis wo con DATE OF EXAM: 12/27/2017 COMPARISON: NONE HISTORY: Abd pain and fever. Known high-grade leiomyosarcoma with surgical history of hysterectomy. C hemotherapy on 12/19/2017. CT DLP: 593.1 mGycm Automated exposure control for dose reduction was used. TECHNIQUE: Helical acquisition of images was performed from the lung bases through the pelvis. FINDINGS: Lack of intravenous contrast limits evaluation of the solid viscera. LUNG BASES: Scattered areas of subsegmental linear atelectasis are seen as well as a left basilar 1.7 cm bleb. Right middle lobe consolidation with air bronchograms is partially visualized and could rep resent atelectasis or pneumonia. Small hiatal hernia with copious amount of retained or reflux oral c ontrast is seen. Circumferential distal esophageal wall thickening is also noted. LIVER/GB: There is impression on the liver by the intra-abdominal mass. No focal liver lesions are se en given the limitation of lack of intravenous contrast. PANCREAS: Pancreas is displaced and obscured by the adjacent multilobulated mesenteric mass. SPLEEN: No significant abnormality is seen. No splenomegaly. ADRENALS: Right adrenal gland is elevated but uninvolved from a posterior lobulation of the intra-abd ominal mass. Left adrenal gland is unremarkable. KIDNEYS: No hydronephrosis or nephrolithiasis is seen. Mild left renal sinus fat stranding is identif ied on images 34 through 36, nonspecific. FREE AIR: No free air is visualized ADENOPATHY: Few scattered mesenteric lymph nodes are seen with no greater than 1 cm short axis lymph nodes. The largest is seen within the left mid abdomen measuring 8 mm on series 3 image 44. REPRODUCTIVE ORGANS: Uterus is surgically absent. Small bilateral fat filled hernias, right greater t lewis left are noted. URINARY BLADDER: Daniels catheter is seen within the decompressed urinary bladder numerous foci of air are also present. OSSEOUS STRUCTURES: No significant abnormality is seen. BOWEL: Few sigmoid diverticula are present without pericolonic fat stranding. OTHER: Large soft tissue intra-abdominal mass displaces the stomach, right adrenal gland, and inferio r vena cava measuring 17.9 x 13.0 x 15.0 cm in transverse by anterior posterior by craniocaudal dimen leann. IMPRESSION: 1. Large intra-abdominal mass representing a known high-grade leiomyosarcoma displaces the stomach, r ight adrenal gland, and impresses upon the liver. There is also impression upon the inferior vena cav a and degree of distention is poorly evaluated without intravenous contrast. 2. Right middle lobe opacity with air bronchograms that is incompletely visualized. This could repres ent right middle lobe pneumonia or atelectasis. 3. Mild nonspecific fat stranding around the left renal sinus and numerous foci of air within the uri nary bladder. Foci of air could relate to the recent Daniels catheter insertion although correlation wi urinalysis is recommended to ensure these findings do not represent cystitis with early pyelonephr itis. 4. Small hiatal hernia with distal circumferential esophageal thickening and retained oral contrast w ithin the distal esophagus that may relate to reflux or stasis. Circumferential thickening could rela te to esophagitis.
[2017-12-27 11:43] LABS: Large Platelets Present; Platelet Count 26 k/uL (150-450)
--- NOTE | 2017-12-27 12:36 | P.PN ---
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 Patient is on cefepime presently. Patient is quite weak feels tired and rundown. Constitutional: as mentioned above no fever today Cardio vascular: denied any chest pain, palpitations Gastrointestinal denied any nausea vomiting Pulmonary: Denied any shortness of breath cough Neurologic denied any new focal deficits Objective - Vital Signs Vital signs: Vital Signs Temp 97.9 F 12/27/17 07:00 Pulse 102 H 12/27/17 07:00 Resp 16 12/27/17 07:00 BP 111/75 12/27/17 07:00 Pulse Ox 97 12/27/17 07:00 Intake & Output 12/26/17 12/27/17 12/27/17 18:59 06:59 18:59 Intake Total 2141 Output Total 1200 Balance 941 Intake: Intake, IV Titration 1650 Amount Cefepime 2 gm In Sodium 50 Chloride 0.9% 50 ml @ 100 mls/hr IVPB Q12HR [facility] Rx #:[id number] Cefepime 2 gm In Sodium 800 Chloride 0.9% 50 ml @ 100 mls/hr IVPB Q8H [facility] Rx#: [id number] Sodium Chloride 0.9% 1, 800 000 ml @ 150 mls/hr IV . Q6H40M [facility] Rx#:[id number] Oral 200 Blood Product 291 Platelet Pheresis Acda2 291 Unit [id number] Output: Urine 1200 Uretheral (Daniels) 400 Other: Voiding Method Indwelling Catheter Indwelling Catheter # Voids 0 0 # Bowel Movements 0 - Exam GENERAL: The patient is alert and oriented x3, quite tired and sleepy HEENT: Pupils are round and equally reacting to light. EOMI. No scleral icterus. No conjunctival pallor. Normocephalic, atraumatic. No pharyngeal erythema. No thyromegaly. CARDIOVASCULAR: S1 and S2 present. No murmurs, rubs, or gallops. PULMONARY: Chest is clear to auscultation, no wheezing or crackles. ABDOMEN: Soft, nondistended, normoactive bowel sounds. mass in the upper abdomen which is sarcoma minimal tenderness in that area MUSCULOSKELETAL: No joint swelling or deformity. EXTREMITIES: No cyanosis, clubbing, or pedal edema. NEUROLOGICAL: Gross neurological examination did not reveal any focal deficits. SKIN: No rashes. - Labs CBC & Chem 7: 12/27/17 08:08 12/27/17 08:08 Labs: Abnormal Lab Results - Last 24 Hours (Table) 12/26/17 12/27/17 12/27/17 Range/Units 17:56 08:08 08:08 WBC 0.8 L* 1.8 L* (3.8-10.6) k/uL RBC 3.00 L 2.96 L (3.80-5.40) m/uL Hgb 8.5 L 8.4 L (11.4-16.0) gm/dL Hct 26.4 L 26.8 L (34.0-46.0) % Plt Count 8 L* 26 L* D (150-450) k/uL Neutrophils # (Manual) 1.00 L (1.3-7.7) k/uL Lymphocytes # (Manual) 0.31 L (1.0-4.8) k/uL Metamyelocytes # (Man) 0.04 H (0) k/uL Myelocytes # (Manual) 0.23 H (0) k/uL Nucleated RBCs 1 H (0-0) /100 WBC Chloride 111 H (98-107) mmol/L Carbon Dioxide 17 L (22-30) mmol/L BUN 41 H (7-17) mg/dL Creatinine 1.24 H (0.52-1.04) mg/dL Microbiology - Last 24 Hours (Table) 12/26/17 01:28 Urine Culture - Final Urine,Catheterized 12/25/17 23:50 Blood Culture Gram Stain - Preliminary Blood Blood Culture - Preliminary Gram Neg Bacilli 12/25/17 23:50 Blood Culture - Final Blood Assessment and Plan Plan: - sepsis and bacteremia: patient appears to have both the right middle lobe pneumonia and (sided pyelonephritis from the CAT scan reading patient is safe p.m. repeat blood cultures are so far negative. 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
[2017-12-27] MEDS: NON-FORMULARY DRUG (Cranberry Fruit Extract [Cranberry] 500 MG) PO SCH (13:12)
--- NOTE | 2017-12-27 18:50 | P.PN ---
Subjective Progress Note Date: 12/27/17 Principal diagnosis: febrile neutropenia Patient seen today in follow-up, she denies much improvement in how she feels, she continues to have poor appetite, no nausea or vomiting, feeling very weak, abdominal discomfort is persistent but, not progressive, no recent BM, patient is having leg pain, this is not new but, laying around makes it worse. Objective - Vital Signs Vital signs: Vital Signs Temp 97.9 F 12/27/17 15:00 Pulse 56 L 12/27/17 16:00 Resp 16 12/27/17 16:00 BP 88/56 12/27/17 15:00 Pulse Ox 100 12/27/17 15:00 Intake & Output 12/26/17 12/27/17 12/27/17 18:59 06:59 18:59 Intake Total 2141 500 Output Total 1200 800 Balance 941 -300 Weight 81 kg Intake: Intake, IV Titration 1650 100 Amount Cefepime 2 gm In Sodium 50 100 Chloride 0.9% 50 ml @ 100 mls/hr IVPB Q12HR [facility] Rx #:[id number] Cefepime 2 gm In Sodium 800 Chloride 0.9% 50 ml @ 100 mls/hr IVPB Q8H [facility] Rx#: [id number] Sodium Chloride 0.9% 1, 800 000 ml @ 75 mls/hr IV . [id number] [facility] Rx#:[id number] Oral 200 400 Blood Product 291 Platelet Pheresis Acda2 291 Unit [id number] Output: Urine 1200 800 Uretheral (Daniels) 400 Other: Voiding Method Indwelling Catheter Indwelling Catheter Indwelling Catheter # Voids 0 0 0 # Bowel Movements 0 0 - Constitutional General appearance: Present: mild distress, obese - EENT ENT: Present: pharyngeal erythema - Respiratory Respiratory: bilateral: CTA, other (weak inspiratory effort) - Cardiovascular Heart sounds: normal: S1, S2 - Peripheral edema leg Peripheral Edema: bilateral: None (pain elicited when touching patient's shins) - Gastrointestinal General gastrointestinal: Present: soft Localized gastrointestinal: tender: midline - Neurologic Neurologic: Present: CNII-XII intact - Musculoskeletal Musculoskeletal: Present: generalized weakness - Psychiatric Psychiatric Comment(s): slow to respond, answers questions appropriately - Labs CBC & Chem 7: 12/27/17 08:08 12/27/17 08:08 Labs: Abnormal Lab Results - Last 24 Hours (Table) 12/27/17 12/27/17 Range/Units 08:08 08:08 WBC 1.8 L* (3.8-10.6) k/uL RBC 2.96 L (3.80-5.40) m/uL Hgb 8.4 L (11.4-16.0) gm/dL Hct 26.8 L (34.0-46.0) % Plt Count 26 L* D (150-450) k/uL Neutrophils # (Manual) 1.00 L (1.3-7.7) k/uL Lymphocytes # (Manual) 0.31 L (1.0-4.8) k/uL Metamyelocytes # (Man) 0.04 H (0) k/uL Myelocytes # (Manual) 0.23 H (0) k/uL Nucleated RBCs 1 H (0-0) /100 WBC Chloride 111 H (98-107) mmol/L Carbon Dioxide 17 L (22-30) mmol/L BUN 41 H (7-17) mg/dL Creatinine 1.24 H (0.52-1.04) mg/dL Microbiology - Last 24 Hours (Table) 12/26/17 13:11 Blood Culture - Preliminary Blood No Growth after 24 hours 12/26/17 01:28 Urine Culture - Final Urine,Catheterized 12/25/17 23:50 Blood Culture Gram Stain - Preliminary Blood Blood Culture - Preliminary Gram Neg Bacilli Assessment and Plan (1) Febrile neutropenia Narrative/Plan: Patient's WBC recovering, absolute neutrophil count today is 1000, no fevers since admission. CBC daily Current Visit: Yes Status: Acute Priority: High Code(s): D70.9 - NEUTROPENIA, UNSPECIFIED; R50.81 - FEVER PRESENTING WITH CONDITIONS CLASSIFIED ELSEWHERE SNOMED Code(s): 731961990 (2) Pancytopenia due to antineoplastic chemotherapy Narrative/Plan: Patient's hemoglobin is low but not requiring transfusion Platelet transfusion increased platelets to 26,000, no aspirin or NSAIDs or anticoagulation Current Visit: Yes Status: Acute Priority: High Code(s): D61.810 - ANTINEOPLASTIC CHEMOTHERAPY INDUCED PANCYTOPENIA; T45.1X5A - ADVERSE EFFECT OF ANTINEOPLASTIC AND IMMUNOSUP DRUGS, INIT SNOMED Code(s): 290303328249053 (3) Leiomyosarcoma Narrative/Plan: Pt will return to her Primary Oncologist for follow up and plan of care for treatment of malignancy. Current Visit: Yes Status: Acute Priority: High Code(s): C49.9 - MALIGNANT NEOPLASM OF CONNECTIVE AND SOFT TISSUE, UNSP SNOMED Code(s): 867953095
--- NOTE | 2017-12-28 00:05 | PN ---
PROGRESS NOTE DATE OF SERVICE: 12/27/2017 REASON FOR FOLLOWUP: Febrile neutropenia with Gram-negative bacteremia. INTERVAL HISTORY: The patient is afebrile this morning. She is breathing slightly comfortably. Very minimal cough. No nausea. No vomiting. Abdominal pain has slightly improved. Oral intake remains poor. No diarrhea. PHYSICAL EXAMINATION: Blood pressure is 111/75 with a pulse of 56, temperature of 97.9. She is 97% on room air. General description is a middle-aged female lying in bed in no distress. RESPIRATORY SYSTEM: Unlabored breathing with decreased breath sounds in the bases. No wheeze. HEART: S1, S2. Regular rate and rhythm. ABDOMEN: Soft. No significant tenderness or guarding or rigidity. EXTREMITIES: No edema of feet. LABS: Hemoglobin 8.4 with a white count of 1.8. BUN of 41. Creatinine is 1.24. CT abdomen and pelvis with a question of right mid lung pneumonia and large leiomyosarcoma and there is the possibility of left-sided DIAGNOSTIC IMPRESSION AND PLAN: Patient with febrile neutropenia with Gram-negative bacteremia as well as a question of pneumonia, and no significant intra-abdominal pathology was noted, though shows tumor. She did have some abnormalities of the left kidney on the CT; however, UA was not significantly positive. The patient is currently covered with cefepime. That will be continued and adjusted further on the basis of the culture report. was present at bedside. His questions were answered. MMODL / IJN: [id number] /
[2017-12-28] MEDS: SALT AND SODA MOUTHWASH 1,000 ML PO SCH ×5 (02:01→20:10)
[2017-12-28] MEDS: MAG HYDROX/AL HYDROX/SIMETH 30 ML, diphenhydrAMINE ELIXIR 75 MG, LIDOCAINE VISCOUS 30 ML PO SCH ×9 (08:11→23:01)
[2017-12-28] MEDS: CEFEPIME 2 GM in SODIUM CHLORIDE 0.9% 50 ML IVPB SCH ×2 (08:11→20:09)
[2017-12-28] MEDS: FAMOTIDINE 20 MG TAB PO SCH (08:12)
[2017-12-28] MEDS: CALCIUM CARBONATE 500 MG CHEWABLE PO SCH (08:12)
[2017-12-28] MEDS: NON-FORMULARY DRUG (Cranberry Fruit Extract [Cranberry] 500 MG) PO SCH (08:15)
[2017-12-28] MEDS: NON-FORMULARY DRUG (Fish Oil/Dha/Epa [Fish Oil 1,200 Mg Fish Oil] 1 EACH) PO SCH (08:15)
[2017-12-28] MEDS: MULTIVITAMINS, THERA 1 EACH TAB PO SCH (08:15)
[2017-12-28] MEDS: MORPHINE SULFATE ER 30 MG TABLET PO SCH ×2 (08:18→23:11)
[2017-12-28] MEDS: SODIUM CHLORIDE 0.9% 1,000 ML IV SCH ×2 (08:40→20:12)
[2017-12-28 09:04] LABS: HCT 28.2 % (34.0-46.0); HGB 8.6 gm/dL (11.4-16.0); MCH 27.6 pg (25.0-35.0); MCHC 30.3 g/dL (31.0-37.0); MCV 91.1 fL (80.0-100.0); Mean Platelet Volume 9.1; RDW 13.2 % (11.5-15.5); WBC 9.1 k/uL (3.8-10.6)
[2017-12-28 09:23] LABS: Platelet Count 35 k/uL (150-450)
[2017-12-28] MEDS: LACTULOSE 20 GM/30 ML CUP PO SCH ×3 (10:33→21:41)
[2017-12-28 11:22] LABS: Band Neutrophils % 9 %; Lymphocytes # (M) 0.64 k/uL (1.0-4.8); Metamyelocytes # (M) 0.46 k/uL (0); Metamyelocytes % 5 %; Monocytes # (M) 0.46 k/uL (0-1.0); Myelocytes # (M) 1.27 k/uL (0); Myelocytes % 14 %; Neutrophils % (M) 61 %; Nucleated Red Blood Cells 0 /100 WBC (0-0); Total Cells Counted 200
--- NOTE | 2017-12-28 14:05 | CDI ---
Last Revision, October 2017 Documentation Clarification Form Date: 12/28/2017 1:50:00 PM From: Ree Aguila RN, CCDS Admit Date: 12/26/2017 1:57:00 AM Patient Name: Padma Dupont Visit Number: [id number] ATTENTION: The Clinical Documentation Specialists (CDI) and [facility] Coding Staff appreciate your assistance in clarifying documentation. Please respond to the clarification below the line at the bottom and electronically sign. The CDI & [facility] Coding staff will review the response and follow-up if needed. Please note: Queries are made part of the Legal Health Record. If you have any questions, please contact the author of this message via ITS. Dr. Durga Neal Pneumonia was documented in your notes on: History/Risk Factors: Immunosuppressed s/p chemo, leimyosarcoma Clinical Indicators: 12/27 Attending Progress Note: sepsis and bacteremia: patient appears to have both the right middle lobe pneumonia. WBC/Left shift: .4/.8/1.8 X-ray: "Subsegmental atelectasis at the lung bases and more on the right side. Elevated right diaphragm could relate to partial paralysis. No heart failure." H&P Lung/Breathing assessment: PULMONARY: "Chest is clear to auscultation, no wheezing or crackles." Treatment: Antibiotics: Vanco IVPB 1500 mg OT, Cefepime 2gm IVPB Q 12 hrs, IVP Rocephin 3L IVF Bolus O2: room air Breathing TX: none In order to capture the severity of condition, please clarify if the condition signifies and you are treating for: Aspiration Pneumonia, identify if: Due to solids or liquids Due to anesthesia during L/D Gram Negative Pneumonia Due to Strep Due to Staph Due to E. coli Other bacteria (please specify) Viral Pneumonia, specify casual organism (if known) Other, please specify Unable to determine Please continue to document in your progress notes and discharge summary in order to capture severity of illness and risk of mortality. Include clinical findings that support your diagnosis. Gram Negative Pneumonia MTDD
[2017-12-28] MEDS ORDERED: HYDROcodone/APAP 5-325MG 1 EACH TAB PO PRN (17:51)
--- NOTE | 2017-12-28 18:04 | P.PN ---
Subjective Progress Note Date: 12/28/17 Progress Note D[address]ated for Dr. 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 Patient is on cefepime presently. Patient is quite weak feels tired and rundown. Constitutional: as mentioned above no fever today Cardio vascular: denied any chest pain, palpitations Gastrointestinal denied any nausea vomiting Pulmonary: Denied any shortness of breath cough Neurologic denied any new focal deficits 12/28/2017 maintained on cefepime, receiving IV fluid hydration, diet intake improved with no nausea or vomiting. Significant improvement in WBC is coming up to 9.1, renal function improving. Extremely weak. Received prn morphine earlier for right upper quadrant abdominal pain which states makes her too exhausted to participate with physical therapy. Further Physical therapy this afternoon pending. Blood culture positive for pseudomonas aeruginosa, and preliminary repeat blood cultures negative at 24 hours. Objective - Vital Signs Vital signs: Vital Signs Temp 97.8 F 12/28/17 15:00 Pulse 91 12/28/17 15:17 Resp 16 12/28/17 15:17 BP 93/61 12/28/17 15:00 Pulse Ox 95 12/28/17 15:00 Intake & Output 12/27/17 12/28/17 12/28/17 18:59 06:59 18:59 Intake Total 500 1440 800 Output Total 800 800 500 Balance -300 640 300 Weight 81 kg 81 kg Intake: Intake, IV Titration 100 650 800 Amount Cefepime 2 gm In Sodium 100 50 Chloride 0.9% 50 ml @ 100 mls/hr IVPB Q12HR [facility] Rx #:[id number] Sodium Chloride 0.9% 1, 600 800 000 ml @ 75 mls/hr IV . [id number] [facility] Rx#:[id number] Oral 400 790 Output: Urine 800 800 500 Uretheral (Daniels) 500 500 Other: Voiding Method Indwelling Catheter Indwelling Catheter Indwelling Catheter # Voids 0 0 # Bowel Movements 0 0 - Exam GENERAL: The patient is alert and oriented x3, quite tired and sleepy HEENT: Pupils are round and equally reacting to light. EOMI. No scleral icterus. No conjunctival pallor. Normocephalic, atraumatic. No pharyngeal erythema. No thyromegaly. CARDIOVASCULAR: S1 and S2 present. No murmurs, rubs, or gallops. PULMONARY: Chest is clear to auscultation, no wheezing or crackles. ABDOMEN: Soft, nondistended, normoactive bowel sounds. mass in the upper abdomen which is sarcoma, minimal tenderness right upper quadrant MUSCULOSKELETAL: No joint swelling or deformity. EXTREMITIES: No cyanosis, clubbing, or pedal edema. NEUROLOGICAL: Gross neurological examination did not reveal any focal deficits. SKIN: No rashes. Microbiology 12/26/17 13:11 Blood Blood Culture - Preliminary No Growth after 48 hours 12/27/17 08:08 Blood Blood Culture - Preliminary No Growth after 24 hours 12/25/17 23:50 Blood Blood Culture Gram Stain - Final 12/25/17 23:50 Blood Blood Culture - Final Pseudomonas aeruginosa 12/26/17 01:28 Urine,Catheterized Urine Culture - Final 12/25/17 23:50 Blood Blood Culture - Final - Labs CBC & Chem 7: 12/28/17 08:06 12/27/17 08:08 Labs: Abnormal Lab Results - Last 24 Hours (Table) 12/28/17 Range/Units 08:06 RBC 3.10 L (3.80-5.40) m/uL Hgb 8.6 L (11.4-16.0) gm/dL Hct 28.2 L (34.0-46.0) % MCHC 30.3 L (31.0-37.0) g/dL Plt Count 35 L* (150-450) k/uL Lymphocytes # (Manual) 0.64 L (1.0-4.8) k/uL Metamyelocytes # (Man) 0.46 H (0) k/uL Myelocytes # (Manual) 1.27 H (0) k/uL Microbiology - Last 24 Hours (Table) 12/26/17 13:11 Blood Culture - Preliminary Blood No Growth after 48 hours 12/27/17 08:08 Blood Culture - Preliminary Blood No Growth after 24 hours 12/25/17 23:50 Blood Culture Gram Stain - Final Blood Blood Culture - Final Pseudomonas aeruginosa Assessment and Plan Assessment: - sepsis and bacteremia: patient appears to have both the right middle lobe pneumonia and atelectasis (possible esophagitis, pyelonephritis from the CAT scan Blood cultures on admission is showing pseudomonas aeruginosa, preliminary repeat blood cultures negative -Severe neutropenia and pancytopenia: Secondary to chemotherapy -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 Plan: Continue current medication regime , cefepime, monitoring and symptomatic treatment. Maintain IV fluid hydration. Repeat cultures pending. Antibiotics as per ID. PT OT. Discharge planning in progress for subacute rehab. The impression and plan of care has been dictated as directed. : I performed a history and examination of this patient, discussed the same with the dictator. I agree with the dictator's note ,documented as a scribe. Any additional findings or plans will be noted.
--- NOTE | 2017-12-28 21:49 | PN ---
PROGRESS NOTE DATE OF SERVICE: 12/28/17 REASON FOR FOLLOWUP: Febrile neutropenia and Pseudomonas bacteremia. INTERVAL HISTORY: The patient is afebrile. She has been breathing comfortably. Still feeling very weak and tired. No energy. The patient denies having any chest pain or shortness of breath. Minimal cough. No worsening abdominal pain or diarrhea. EXAMINATION: Blood pressure is 93/61 with a pulse of 92, temperature 97.8. She is 95% on room air. General description is a middle aged female, lying in bed in no distress. Respiratory system unlabored breathing. Clear to auscultation anteriorly. Heart S1, S2. Regular rate and rhythm. ABDOMEN: Soft, not distended, no guarding or rigidity. LABS: Hemoglobin is 8.6, white count 9.1 with a BUN of 41, creatinine 1.24. His blood culture repeat has been negative. DIAGNOSTIC IMPRESSION AND PLAN: Patient with pseudomonas pneumonia could be related to right upper lobe pneumonia. CT abdominal and pelvis did show the , but no evidence of any inflammation. Plan at this time is to give the patient cefepime. She did have a MediPort, keep the patient on in the outpatient setting for at least 10 days for underlying infection. Continue supportive care. MMODL / IJN: [id number] /
[2017-12-29] MEDS: SALT AND SODA MOUTHWASH 1,000 ML PO SCH ×6 (01:04→23:33)
[2017-12-29 07:10] LABS: HCT 27.2 % (34.0-46.0); HGB 8.3 gm/dL (11.4-16.0); Hypochromasia Slight; MCH 28.7 pg (25.0-35.0); MCHC 30.7 g/dL (31.0-37.0); MCV 93.6 fL (80.0-100.0); Mean Platelet Volume 10.1; RBC 2.91 m/uL (3.80-5.40); RDW 14.4 % (11.5-15.5); WBC 20.6 k/uL (3.8-10.6)
[2017-12-29 07:14] LABS: Platelet Count 41 k/uL (150-450)
[2017-12-29 07:57] LABS: Lymphocytes # (M) 0.82 k/uL (1.0-4.8); Metamyelocytes # (M) 0.21 k/uL (0); Metamyelocytes % 1 %; Monocytes # (M) 1.65 k/uL (0-1.0); Myelocytes # (M) 4.53 k/uL (0); Myelocytes % 22 %; Neutrophils % (M) 66 %; Nucleated Red Blood Cells 0 /100 WBC (0-0); Total Cells Counted 200
[2017-12-29 07:58] LABS: Large Platelets Present
[2017-12-29] MEDS: CEFEPIME 2 GM in SODIUM CHLORIDE 0.9% 50 ML IVPB SCH ×2 (08:29→21:07)
[2017-12-29] MEDS: CALCIUM CARBONATE 500 MG CHEWABLE PO SCH (09:17)
[2017-12-29] MEDS: MORPHINE SULFATE ER 30 MG TABLET PO SCH ×2 (09:36→21:08)
[2017-12-29] MEDS: LACTULOSE 20 GM/30 ML CUP PO SCH ×2 (09:36→21:08)
[2017-12-29] MEDS: FAMOTIDINE 20 MG TAB PO SCH (09:36)
[2017-12-29] MEDS: MAG HYDROX/AL HYDROX/SIMETH 30 ML, diphenhydrAMINE ELIXIR 75 MG, LIDOCAINE VISCOUS 30 ML PO SCH ×9 (09:37→21:08)
[2017-12-29] MEDS: MULTIVITAMINS, THERA 1 EACH TAB PO SCH (09:37)
[2017-12-29] MEDS: ONDANSETRON 4 MG/2 ML VIAL IVP PRN (12:06)
--- NOTE | 2017-12-29 17:11 | P.PN ---
Subjective Progress Note Date: 12/29/17 Progress Note D[address]ated for Dr. 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 Patient is on cefepime presently. Patient is quite weak feels tired and rundown. Constitutional: as mentioned above no fever today Cardio vascular: denied any chest pain, palpitations Gastrointestinal denied any nausea vomiting Pulmonary: Denied any shortness of breath cough Neurologic denied any new focal deficits 12/28/2017 maintained on cefepime, receiving IV fluid hydration, diet intake improved with no nausea or vomiting. Significant improvement in WBC is coming up to 9.1, renal function improving. Extremely weak. Received prn morphine earlier for right upper quadrant abdominal pain which states makes her too exhausted to participate with physical therapy. Further Physical therapy this afternoon pending. Blood culture positive for pseudomonas aeruginosa, and preliminary repeat blood cultures negative at 24 hours. 12/29/17 Maintained on IV antibiotics.Afebrile, WBC 20.6. Exhausted after participating with physical therapy today. Extremely weak. Family members at bedside, discussed poor prognosis. Objective - Vital Signs Vital signs: Vital Signs Temp 98.7 F 12/29/17 15:00 Pulse 92 12/29/17 15:00 Resp 16 12/29/17 15:00 BP 101/69 12/29/17 15:00 Pulse Ox 98 12/29/17 15:00 Intake & Output 12/28/17 12/29/17 12/29/17 18:59 06:59 18:59 Intake Total 800 875 650 Output Total 500 950 Balance 300 875 -300 Weight 81 kg Intake: Intake, IV Titration 800 875 650 Amount Cefepime 2 gm In Sodium 50 50 Chloride 0.9% 50 ml @ 100 mls/hr IVPB Q12HR [facility] Rx #:[id number] Sodium Chloride 0.9% 1, 800 825 600 000 ml @ 75 mls/hr IV . [id number] [facility] Rx#:[id number] Output: Urine 500 650 Uretheral (Daniels) 500 Stool 300 Other: Voiding Method Indwelling Catheter Indwelling Catheter Indwelling Catheter # Voids 0 # Bowel Movements 0 2 1 - Exam GENERAL: The patient is alert and oriented x3, fatigued HEENT: Pupils are round and equally reacting to light. EOMI. No scleral icterus. No conjunctival pallor. Normocephalic, atraumatic. No pharyngeal erythema. No thyromegaly. CARDIOVASCULAR: S1 and S2 present. No murmurs, rubs, or gallops. PULMONARY: Chest is clear to auscultation, no wheezing or crackles. ABDOMEN: Soft, nondistended, normoactive bowel sounds. mass in the upper abdomen which is sarcoma, mild tenderness right upper quadrant MUSCULOSKELETAL: No joint swelling or deformity. EXTREMITIES: No cyanosis, clubbing, or pedal edema. NEUROLOGICAL: Gross neurological examination did not reveal any focal deficits. SKIN: No rashes. Microbiology 12/26/17 13:11 Blood Blood Culture - Preliminary No Growth after 72 hours 12/27/17 08:08 Blood Blood Culture - Preliminary No Growth after 48 hours 12/25/17 23:50 Blood Blood Culture Gram Stain - Final 12/25/17 23:50 Blood Blood Culture - Final Pseudomonas aeruginosa 12/26/17 01:28 Urine,Catheterized Urine Culture - Final 12/25/17 23:50 Blood Blood Culture - Final - Labs CBC & Chem 7: 12/29/17 06:44 12/27/17 08:08 Labs: Abnormal Lab Results - Last 24 Hours (Table) 12/29/17 Range/Units 06:44 WBC 20.6 H (3.8-10.6) k/uL RBC 2.91 L (3.80-5.40) m/uL Hgb 8.3 L (11.4-16.0) gm/dL Hct 27.2 L (34.0-46.0) % MCHC 30.7 L (31.0-37.0) g/dL Plt Count 41 L* (150-450) k/uL Neutrophils # (Manual) 13.60 H (1.3-7.7) k/uL Lymphocytes # (Manual) 0.82 L (1.0-4.8) k/uL Monocytes # (Manual) 1.65 H (0-1.0) k/uL Metamyelocytes # (Man) 0.21 H (0) k/uL Myelocytes # (Manual) 4.53 H (0) k/uL Microbiology - Last 24 Hours (Table) 12/26/17 13:11 Blood Culture - Preliminary Blood No Growth after 72 hours 12/27/17 08:08 Blood Culture - Preliminary Blood No Growth after 48 hours Assessment and Plan Assessment: - sepsis and bacteremia: patient appears to have both the right middle lobe pneumonia and atelectasis (possible esophagitis, pyelonephritis from the CAT scan Blood cultures on admission is showing pseudomonas aeruginosa, preliminary repeat blood cultures negative -Severe neutropenia and pancytopenia: Secondary to chemotherapy -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 Plan: Continue current medication regime , cefepime, monitoring and symptomatic treatment. Maintain IV fluid hydration. Repeat cultures pending. Antibiotics as per ID. PT OT. Discharge planning in progress for subacute rehab, potentially for tomorrow. As mentioned above poor prognosis addressed with family members. Pain management. The impression and plan of care has been dictated as directed. : I performed a history and examination of this patient, discussed the same with the dictator. I agree with the dictator's note ,documented as a scribe. Any additional findings or plans will be noted.
[2017-12-29] MEDS: traMADol 50 MG TAB PO PRN (17:15)
--- NOTE | 2017-12-29 20:50 | PN ---
PROGRESS NOTE DATE OF SERVICE: 12/29/2017 REASON FOR FOLLOWUP: Pseudomonas bacteremia, likely secondary to pneumonia. INTERVAL HISTORY: The patient is afebrile. She is breathing comfortably. Denies significant chest pain or cough. No nausea or vomiting. No abdominal pain. No or any diarrhea. PHYSICAL EXAMINATION: Blood pressure is 101/69 with a pulse of 90, temperature 98.7. She is 98% on room air. General description is a middle-aged female lying in bed in no distress. RESPIRATORY SYSTEM: Unlabored breathing. Clear to auscultation anteriorly. HEART: S1, S2. Regular rate and rhythm. ABDOMEN: Soft. No tenderness. LABS: Hemoglobin 8.3, white count 20.6. Blood culture repeat has been negative so far. DIAGNOSTIC IMPRESSION AND PLAN: Patient with Pseudomonas aeruginosa pneumonia. Plan at this time is to keep the patient on cefepime 2 grams q.12 for another 12 days to finish a 2-week course of therapy. The patient should have repeat blood cultures obtained peripherally as well as from the port after patient's antibiotic therapy to document clearance and no recurrence of bacteremia in view of the Mediport which the patient has, which currently does not look infected. Source is likely right upper lobe pneumonia. Family present at bedside. Their questions were answered. MMODL / IJN: [id number] /
[2017-12-29] MEDS: SODIUM CHLORIDE 0.9% 1,000 ML IV SCH (22:48)
[2017-12-30] MEDS: SALT AND SODA MOUTHWASH 1,000 ML PO SCH ×4 (06:05→21:10)
[2017-12-30] MEDS: ONDANSETRON 4 MG/2 ML VIAL IVP PRN ×3 (08:04→16:43)
[2017-12-30 08:13] LABS: HCT 26.3 % (34.0-46.0); HGB 8.2 gm/dL (11.4-16.0); Hypochromasia Slight; MCH 28.5 pg (25.0-35.0); MCV 91.8 fL (80.0-100.0); Mean Platelet Volume 9.8; RBC 2.87 m/uL (3.80-5.40); RDW 14.2 % (11.5-15.5)
[2017-12-30 08:27] LABS: Platelet Count 51 k/uL (150-450)
[2017-12-30] MEDS: FAMOTIDINE 20 MG TAB PO SCH (08:53)
[2017-12-30] MEDS: CALCIUM CARBONATE 500 MG CHEWABLE PO SCH (08:53)
[2017-12-30] MEDS: LACTULOSE 20 GM/30 ML CUP PO SCH ×2 (08:53→21:10)
[2017-12-30] MEDS: MORPHINE SULFATE ER 30 MG TABLET PO SCH (08:53)
[2017-12-30] MEDS: MAG HYDROX/AL HYDROX/SIMETH 30 ML, diphenhydrAMINE ELIXIR 75 MG, LIDOCAINE VISCOUS 30 ML PO SCH ×9 (08:54→21:10)
[2017-12-30] MEDS: MULTIVITAMINS, THERA 1 EACH TAB PO SCH (08:54)
[2017-12-30] MEDS: CEFEPIME 2 GM in SODIUM CHLORIDE 0.9% 50 ML IVPB SCH ×2 (11:22→21:10)
[2017-12-30 11:32] LABS: Band Neutrophils % 15 %; Lymphocytes # (M) 0.27 k/uL (1.0-4.8); Metamyelocytes # (M) 0.81 k/uL (0); Metamyelocytes % 3 %; Myelocytes # (M) 1.35 k/uL (0); Myelocytes % 5 %; Neutrophils % (M) 66 %; Nucleated Red Blood Cells 0 /100 WBC (0-0); Promyelocytes # (M) 0.54 k/uL (0); Promyelocytes % 2 %; Total Cells Counted 200
[2017-12-30 11:35] LABS: Anisocytosis (M) Present; Poikilocytosis (M) Present
--- NOTE | 2017-12-30 17:08 | P.PN ---
Subjective Progress Note Date: 12/30/17 Progress Note Dictated for Dr. 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 Patient is on cefepime presently. Patient is quite weak feels tired and rundown. Constitutional: as mentioned above no fever today Cardio vascular: denied any chest pain, palpitations Gastrointestinal denied any nausea vomiting Pulmonary: Denied any shortness of breath cough Neurologic denied any new focal deficits 12/28/2017 maintained on cefepime, receiving IV fluid hydration, diet intake improved with no nausea or vomiting. Significant improvement in WBC is coming up to 9.1, renal function improving. Extremely weak. Received prn morphine earlier for right upper quadrant abdominal pain which states makes her too exhausted to participate with physical therapy. Further Physical therapy this afternoon pending. Blood culture positive for pseudomonas aeruginosa, and preliminary repeat blood cultures negative at 24 hours. 12/29/17 Maintained on IV antibiotics.Afebrile, WBC 20.6. Exhausted after participating with physical therapy today. Extremely weak. Family members at bedside, discussed poor prognosis. 12/30/17 maintained on cefepime, T-max 100.8, WBC 27. Appears very tired, states pain unchanged in the right upper quadrant area- Family at bedside, updated. Transfer to subacute rehab placed on hold. Objective - Vital Signs Vital signs: Vital Signs Temp 97.0 F L 12/30/17 15:00 Pulse 85 12/30/17 16:00 Resp 16 12/30/17 16:00 BP 109/75 12/30/17 15:00 Pulse Ox 95 12/30/17 15:00 Intake & Output 12/29/17 12/30/17 12/30/17 18:59 06:59 18:59 Intake Total 650 1665 Output Total 950 1900 Balance -300 1665 -1900 Intake: IV 875 Cefepime 2 gm In Sodium 50 Chloride 0.9% 50 ml @ 100 mls/hr IVPB Q12HR [facility] Rx #:[id number] Sodium Chloride 0.9% 1, 825 000 ml @ 75 mls/hr IV . [id number] [facility] Rx#:[id number] Intake, IV Titration 650 Amount Cefepime 2 gm In Sodium 50 Chloride 0.9% 50 ml @ 100 mls/hr IVPB Q12HR [facility] Rx #:[id number] Sodium Chloride 0.9% 1, 600 000 ml @ 75 mls/hr IV . [id number] [facility] Rx#:[id number] Oral 790 Output: Urine 650 1900 Uretheral (Daniels) 200 Stool 300 Other: Voiding Method Indwelling Catheter Indwelling Catheter Indwelling Catheter # Bowel Movements 1 2 - Exam GENERAL: The patient is alert and oriented x3, fatigued HEENT: Pupils are round and equally reacting to light. EOMI. No scleral icterus. No conjunctival pallor. Normocephalic, atraumatic. No pharyngeal erythema. CARDIOVASCULAR: S1 and S2 present. No murmurs, rubs, or gallops. PULMONARY: Chest is clear to auscultation, no wheezing or crackles. ABDOMEN: Soft, nondistended, normoactive bowel sounds. mass in the upper abdomen which is sarcoma, mild tenderness right upper quadrant MUSCULOSKELETAL: No joint swelling or deformity. EXTREMITIES: No cyanosis, clubbing, or pedal edema. NEUROLOGICAL: Gross neurological examination did not reveal any focal deficits. SKIN: No rashes. Microbiology 12/26/17 13:11 Blood Blood Culture - Preliminary No Growth after 96 hours 12/27/17 08:08 Blood Blood Culture - Preliminary No Growth after 72 hours 12/25/17 23:50 Blood Blood Culture Gram Stain - Final 12/25/17 23:50 Blood Blood Culture - Final Pseudomonas aeruginosa 12/26/17 01:28 Urine,Catheterized Urine Culture - Final 12/25/17 23:50 Blood Blood Culture - Final - Labs CBC & Chem 7: 12/30/17 07:16 12/27/17 08:08 Labs: Abnormal Lab Results - Last 24 Hours (Table) 12/30/17 Range/Units 07:16 WBC 27.0 H* (3.8-10.6) k/uL RBC 2.87 L (3.80-5.40) m/uL Hgb 8.2 L (11.4-16.0) gm/dL Hct 26.3 L (34.0-46.0) % Plt Count 51 L (150-450) k/uL Neutrophils # (Manual) 21.80 H (1.3-7.7) k/uL Lymphocytes # (Manual) 0.27 L (1.0-4.8) k/uL Monocytes # (Manual) 2.70 H (0-1.0) k/uL Metamyelocytes # (Man) 0.81 H (0) k/uL Myelocytes # (Manual) 1.35 H (0) k/uL Promyelocytes # (Man) 0.54 H (0) k/uL Microbiology - Last 24 Hours (Table) 12/26/17 13:11 Blood Culture - Preliminary Blood No Growth after 96 hours 12/27/17 08:08 Blood Culture - Preliminary Blood No Growth after 72 hours Assessment and Plan Assessment: - sepsis and bacteremia: patient appears to have both the right middle lobe pneumonia and atelectasis (possible esophagitis, pyelonephritis from the CAT scan Blood cultures on admission is showing pseudomonas aeruginosa, preliminary repeat blood cultures negative -Severe neutropenia and pancytopenia: Secondary to chemotherapy -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 Plan: Continue current medication regime , cefepime, monitoring and symptomatic treatment. Maintain IV fluid hydration. Repeat cultures pending. Antibiotics as per ID. PT OT. Prognosis poor. Family requesting meeting with oncology. Discharge planning in progress for subacute rehab, potentially for tomorrow. The impression and plan of care has been dictated as directed. : I performed a history and examination of this patient, discussed the same with the dictator. I agree with the dictator's note ,documented as a scribe. Any additional findings or plans will be noted.
--- NOTE | 2017-12-30 18:29 | P.PN ---
Subjective Progress Note Date: 12/30/17 the patient is overall feeling better, but improvement is quite slow. She remains very weak, and subacuterehabilitation has been recommended. Objective - Vital Signs Vital signs: Vital Signs Temp 97.0 F L 12/30/17 15:00 Pulse 85 12/30/17 16:00 Resp 16 12/30/17 16:00 BP 109/75 12/30/17 15:00 Pulse Ox 95 12/30/17 15:00 Intake & Output 12/29/17 12/30/17 12/30/17 18:59 06:59 18:59 Intake Total 650 1665 Output Total 950 1900 Balance -300 1665 -1900 Intake: IV 875 Cefepime 2 gm In Sodium 50 Chloride 0.9% 50 ml @ 100 mls/hr IVPB Q12HR [facility] Rx #:[id number] Sodium Chloride 0.9% 1, 825 000 ml @ 75 mls/hr IV . [id number] [facility] Rx#:[id number] Intake, IV Titration 650 Amount Cefepime 2 gm In Sodium 50 Chloride 0.9% 50 ml @ 100 mls/hr IVPB Q12HR [facility] Rx #:[id number] Sodium Chloride 0.9% 1, 600 000 ml @ 75 mls/hr IV . [id number] [facility] Rx#:[id number] Oral 790 Output: Urine 650 1900 Uretheral (Daniels) 200 Stool 300 Other: Voiding Method Indwelling Catheter Indwelling Catheter Indwelling Catheter # Bowel Movements 1 2 - Constitutional Constitutional Comment(s): marked generalized weakness General appearance: Present: no acute distress - EENT Eyes: Present: EOMI, PERRLA ENT: Present: hearing grossly normal, normal oropharynx - Respiratory Respiratory: bilateral: CTA - Cardiovascular Rhythm: regular Heart sounds: normal: S1, S2 - Gastrointestinal General gastrointestinal: Present: normal bowel sounds, soft - Integumentary Integumentary: Present: normal - Neurologic Neurologic: Present: CNII-XII intact - Musculoskeletal Musculoskeletal: Present: strength equal bilaterally - Psychiatric Psychiatric: Present: A&O x's 3, appropriate affect - Labs CBC & Chem 7: 12/30/17 07:16 12/27/17 08:08 Labs: Abnormal Lab Results - Last 24 Hours (Table) 12/30/17 Range/Units 07:16 WBC 27.0 H* (3.8-10.6) k/uL RBC 2.87 L (3.80-5.40) m/uL Hgb 8.2 L (11.4-16.0) gm/dL Hct 26.3 L (34.0-46.0) % Plt Count 51 L (150-450) k/uL Neutrophils # (Manual) 21.80 H (1.3-7.7) k/uL Lymphocytes # (Manual) 0.27 L (1.0-4.8) k/uL Monocytes # (Manual) 2.70 H (0-1.0) k/uL Metamyelocytes # (Man) 0.81 H (0) k/uL Myelocytes # (Manual) 1.35 H (0) k/uL Promyelocytes # (Man) 0.54 H (0) k/uL Microbiology - Last 24 Hours (Table) 12/26/17 13:11 Blood Culture - Preliminary Blood No Growth after 96 hours 12/27/17 08:08 Blood Culture - Preliminary Blood No Growth after 72 hours Assessment and Plan (1) Febrile neutropenia Narrative/Plan: The patient's neutrophil count has recovered As noted she had received Neulasta postchemotherapy and recovery of counts was within the expected timeframe. Fever has resolved. Blood cultures are positive for Pseudomonas diagnosed, which was felt by ID to be likely originating from her pneumonia. Port was not felt to be infected. Continue antibiotics per ID. Current Visit: Yes Status: Acute Priority: High Code(s): D70.9 - NEUTROPENIA, UNSPECIFIED; R50.81 - FEVER PRESENTING WITH CONDITIONS CLASSIFIED ELSEWHERE SNOMED Code(s): 674746330 (2) Leiomyosarcoma Narrative/Plan: the patient is quite debilitated, and will likely require subacute rehabilitation. her next chemotherapy was due next week but will likely have to be delayed. The patient and her family were advised that she should meet with , her primary oncologist, before resuming treatment. They already have an appointment for the same. Current Visit: Yes Status: Acute Priority: High Code(s): C49.9 - MALIGNANT NEOPLASM OF CONNECTIVE AND SOFT TISSUE, UNSP SNOMED Code(s): 981476827 (3) Pancytopenia due to antineoplastic chemotherapy Narrative/Plan: white count has recovered. Hemoglobin has remained stable in the 8 range. They did countafter dropping into the 20,000 range, is up into the 50,000 range. Current Visit: Yes Status: Acute Priority: High Code(s): D61.810 - ANTINEOPLASTIC CHEMOTHERAPY INDUCED PANCYTOPENIA; T45.1X5A - ADVERSE EFFECT OF ANTINEOPLASTIC AND IMMUNOSUP DRUGS, INIT SNOMED Code(s): 109706009393392
[2017-12-30] MEDS: SODIUM CHLORIDE 0.9% 1,000 ML IV SCH (19:49)
--- NOTE | 2017-12-30 23:00 | PN ---
PROGRESS NOTE DATE OF SERVICE: 12/30/2017 REASON FOR FOLLOWUP: Pseudomonas bacteremia, possible pneumonia. INTERVAL HISTORY: The patient did spike a low-grade fever of 100.8 this morning and the patient is afebrile since then, has been breathing comfortably. Denies significant chest pain. Occasional cough. No nausea, no vomiting, no worsening abdominal pain, no diarrhea. EXAMINATION: Blood pressure is 109/75 with a pulse of 85, temperature of 97. She is 95% on 2L nasal cannula. General description is a middle-aged female lying in bed in no distress. RESPIRATORY SYSTEM: Unlabored breathing, decreased air entry at the bases. No wheeze. HEART: Heart S1, S2. Regular rate and rhythm. ABDOMEN: Soft, no tenderness. EXTREMITIES: No edema of the feet. LABS: Hemoglobin 8.2, white count 27,000. BUN of 41, creatinine is 1.24. Blood culture repeat has been negative. DIAGNOSTIC IMPRESSION AND PLAN: Patient with Pseudomonas aeruginosa bacteremia, source likely pneumonia. Blood culture repeat has been negative. Urine was negative. CT of abdomen/pelvis did not show any acute abnormality. The patient at this time will continue on cefepime 2 g q.12 for another 10-12 days to finish out a 2-week course of therapy from negative blood cultures. If the patient is spiking further fever, she will be re-cultured and antibiotic will be adjusted further. Family present at bedside. Their questions were answered. MMROGERIOL / KENYA: [id number] /
[2017-12-31] MEDS: MORPHINE SULFATE ER 30 MG TABLET PO SCH ×3 (00:04→22:35)
[2017-12-31] MEDS: SALT AND SODA MOUTHWASH 1,000 ML PO SCH ×5 (00:04→19:25)
[2017-12-31] MEDS: SODIUM CHLORIDE 0.9% 1,000 ML IV SCH ×2 (02:23→16:09)
[2017-12-31 07:43] LABS: HCT 26.5 % (34.0-46.0); HGB 7.9 gm/dL (11.4-16.0); Hypochromasia Marked; MCH 28.5 pg (25.0-35.0); MCHC 29.8 g/dL (31.0-37.0); MCV 95.8 fL (80.0-100.0); Mean Platelet Volume 8.8; RBC 2.77 m/uL (3.80-5.40); RDW 13.9 % (11.5-15.5)
[2017-12-31 08:06] LABS: Band Neutrophils % 8 %; Metamyelocytes # (M) 1.28 k/uL (0); Metamyelocytes % 4 %; Monocytes # (M) 1.92 k/uL (0-1.0); Myelocytes # (M) 0.32 k/uL (0); Myelocytes % 1 %; Neutrophils % (M) 73 %; Nucleated Red Blood Cells 0 /100 WBC (0-0); Platelet Count 86 k/uL (150-450); Polychromasia Present; Total Cells Counted 200
[2017-12-31] MEDS: MAG HYDROX/AL HYDROX/SIMETH 30 ML, diphenhydrAMINE ELIXIR 75 MG, LIDOCAINE VISCOUS 30 ML PO SCH ×9 (08:39→21:39)
[2017-12-31] MEDS: CALCIUM CARBONATE 500 MG CHEWABLE PO SCH (08:39)
[2017-12-31] MEDS: MULTIVITAMINS, THERA 1 EACH TAB PO SCH (08:39)
[2017-12-31] MEDS: CEFEPIME 2 GM in SODIUM CHLORIDE 0.9% 50 ML IVPB SCH ×2 (08:39→21:38)
[2017-12-31] MEDS: FAMOTIDINE 20 MG TAB PO SCH (08:39)
[2017-12-31] MEDS: LACTULOSE 20 GM/30 ML CUP PO SCH ×2 (08:40→21:39)
--- NOTE | 2017-12-31 11:47 | P.PN ---
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 Patient is on cefepime presently. Patient is quite weak feels tired and rundown. 12/28/2017 maintained on cefepime, receiving IV fluid hydration, diet intake improved with no nausea or vomiting. Significant improvement in WBC is coming up to 9.1, renal function improving. Extremely weak. Received prn morphine earlier for right upper quadrant abdominal pain which states makes her too exhausted to participate with physical therapy. Further Physical therapy this afternoon pending. Blood culture positive for pseudomonas aeruginosa, and preliminary repeat blood cultures negative at 24 hours. 12/29/17 Maintained on IV antibiotics.Afebrile, WBC 20.6. Exhausted after participating with physical therapy today. Extremely weak. Family members at bedside, discussed poor prognosis. 12/30/17 maintained on cefepime, T-max 100.8, WBC 27. Appears very tired, states pain unchanged in the right upper quadrant area- Family at bedside, updated. Transfer to subacute rehab placed on hold. 12/31/2017 Patient weakness improved patient has redness in the right lower extremity because of which we obtain a Doppler of the right approximately patient is not on due to prophylaxis because of thrombocytopenia she had on admission. We'll also repeat CBC and basic metabolic profile tomorrow. Constitutional: as mentioned above no fever today Cardio vascular: denied any chest pain, palpitations Gastrointestinal denied any nausea vomiting Pulmonary: Denied any shortness of breath cough Neurologic denied any new focal deficits Objective - Vital Signs Vital signs: Vital Signs Temp 98.2 F 12/31/17 07:00 Pulse 83 12/31/17 07:00 Resp 16 12/31/17 07:00 BP 114/71 12/31/17 07:00 Pulse Ox 94 L 12/31/17 07:00 Intake & Output 12/30/17 12/31/17 12/31/17 18:59 06:59 18:59 Output Total 1900 400 300 Balance -1900 -400 -300 Output: Urine 1900 400 Uretheral (Daniels) 200 Stool 300 Other: Voiding Method Indwelling Catheter Indwelling Catheter Indwelling Catheter - Exam GENERAL: The patient is alert and oriented x3, HEENT: Pupils are round and equally reacting to light. EOMI. No scleral icterus. No conjunctival pallor. Normocephalic, atraumatic. No pharyngeal erythema. No thyromegaly. CARDIOVASCULAR: S1 and S2 present. No murmurs, rubs, or gallops. PULMONARY: Chest is clear to auscultation, no wheezing or crackles. ABDOMEN: Soft, nondistended, normoactive bowel sounds. mass in the upper abdomen which is sarcoma minimal tenderness in that area MUSCULOSKELETAL: No joint swelling or deformity. EXTREMITIES: No cyanosis, clubbing, patient does have edema and redness of the right lower extremity highly concerning for DVT NEUROLOGICAL: Gross neurological examination did not reveal any focal deficits. SKIN: No rashes. - Labs CBC & Chem 7: 12/31/17 06:55 12/27/17 08:08 Labs: Abnormal Lab Results - Last 24 Hours (Table) 12/31/17 Range/Units 06:55 WBC 32.0 H* (3.8-10.6) k/uL RBC 2.77 L (3.80-5.40) m/uL Hgb 7.9 L (11.4-16.0) gm/dL Hct 26.5 L (34.0-46.0) % MCHC 29.8 L (31.0-37.0) g/dL Plt Count 86 L D (150-450) k/uL Neutrophils # (Manual) 25.90 H (1.3-7.7) k/uL Monocytes # (Manual) 1.92 H (0-1.0) k/uL Metamyelocytes # (Man) 1.28 H (0) k/uL Myelocytes # (Manual) 0.32 H (0) k/uL Microbiology - Last 24 Hours (Table) 12/27/17 08:08 Blood Culture - Preliminary Blood No Growth after 96 hours 12/26/17 13:11 Blood Culture - Preliminary Blood No Growth after 96 hours Assessment and Plan Plan: - sepsis and bacteremia: patient appears to have both the right middle lobe pneumonia and (sided pyelonephritis from the CAT scan reading patient is safe p.m. repeat blood cultures are so far negative. 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 -hypertension patient is actually hypotensive because of sepsis lisinopril was discontinued -Chronic kidney disease stage III: His creatinine is at her baseline which is 1.2. -Rule out right lower limb DVT.
--- NOTE | 2017-12-31 12:49 | US ---
EXAMINATION TYPE: US venous doppler duplex LE RT DATE OF EXAM: 12/31/2017 12:26 PM COMPARISON: NONE CLINICAL HISTORY: r/o DVT. Pain, edema right leg for 2 days SIDE PERFORMED: Right TECHNIQUE: The lower extremity deep venous system is examined utilizing real time linear array sonog oma with graded compression, doppler sonography and color-flow sonography. VESSELS IMAGED: External Iliac Vein (EIV) Common Femoral Vein Deep Femoral Vein Greater Saphenous Vein * Femoral Vein Popliteal Vein Small Saphenous Vein * Proximal Calf Veins (* superficial vessels) Right Leg: No evidence of DVT as visualized. Technical limitations due to patient's body habitus and edema. Unable to visualize lower femoral vein for compression. 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 THIS EXAMINATION IS NEGATIVE FOR DVT WITHIN THE RIGHT LEG. 2. THIS EXAMINATION IS POSITIVE FOR A POPLITEAL FOSSA CYST.
[2017-12-31] MEDS: HEPARIN SODIUM,PORCINE 5,000 UNIT/ML 1 ML VIAL SQ SCH ×2 (13:05→16:08)
[2017-12-31] MEDS: PANTOPRAZOLE 40 MG/10 ML VIAL IVP SCH (19:24)
--- NOTE | 2017-12-31 22:35 | PN ---
PROGRESS NOTE DATE OF SERVICE: 12/31/2016. REASON FOR FOLLOWUP: Pseudomonas bacteremia pneumonia. INTERVAL HISTORY: The patient is afebrile. She is feeling better, breathing comfortably. Cough has decreased in intensity, mostly dry in nature. No chest pain. No abdominal pain. No nausea, vomiting or any diarrhea. EXAMINATION: Blood pressure 124/81 with a pulse of 81, temperature of 97.9. He is 96% on room air. General description is a middle-aged female up in the bed in no distress. Respiratory System: Unlabored breathing. Clear to auscultation anteriorly. HEART: S1, S2. Regular rate and rhythm. ABDOMEN: Soft. There is no tenderness. EXTREMITIES: No edema of feet. LABS: White count is up to 32,000. Blood culture repeat has been negative. DIAGNOSTIC IMPRESSION AND PLAN: Patient with Pseudomonas bacteremia. Source is likely pneumonia. Blood culture repeat has been negative. Did have jump in white count more likely secondary to the Neupogen, as clinically doubt any worsening infection and seemed to be clinically doing well. Keep the patient on cefepime to finish a course of therapy of 2 weeks total from her negative blood cultures. Family present at bedside. Their questions were answered. MMODL / IJN: [id number] /
[2018-01-01] MEDS: HEPARIN SODIUM,PORCINE 5,000 UNIT/ML 1 ML VIAL SQ SCH ×3 (00:24→17:27)
[2018-01-01] MEDS: SALT AND SODA MOUTHWASH 1,000 ML PO SCH ×5 (00:27→21:08)
[2018-01-01] MEDS: SODIUM CHLORIDE 0.9% 1,000 ML IV SCH (06:20)
[2018-01-01 07:06] LABS: HCT 25.5 % (34.0-46.0); HGB 8.2 gm/dL (11.4-16.0); MCH 29.3 pg (25.0-35.0); MCV 91.7 fL (80.0-100.0); Mean Platelet Volume 8.7; Platelet Count 108 k/uL (150-450); RBC 2.78 m/uL (3.80-5.40); RDW 14.6 % (11.5-15.5)
[2018-01-01 07:11] LABS: WBC 33.2 k/uL (3.8-10.6)
[2018-01-01 07:35] LABS: Anion Gap 8 mmol/L; Blood Urea Nitrogen 22 mg/dL (7-17); Carbon Dioxide 19 mmol/L (22-30); Chloride 117 mmol/L (98-107); Glucose 97 mg/dL (74-99); Potassium 3.4 mmol/L (3.5-5.1); Sodium 144 mmol/L (137-145)
[2018-01-01] MEDS: CALCIUM CARBONATE 500 MG CHEWABLE PO SCH (08:10)
[2018-01-01] MEDS: PANTOPRAZOLE 40 MG/10 ML VIAL IVP SCH (08:10)
[2018-01-01] MEDS: LACTULOSE 20 GM/30 ML CUP PO SCH ×2 (08:10→21:07)
[2018-01-01] MEDS: CEFEPIME 2 GM in SODIUM CHLORIDE 0.9% 50 ML IVPB SCH ×2 (08:11→21:08)
[2018-01-01] MEDS: MAG HYDROX/AL HYDROX/SIMETH 30 ML, diphenhydrAMINE ELIXIR 75 MG, LIDOCAINE VISCOUS 30 ML PO SCH ×12 (08:11→22:12)
[2018-01-01] MEDS: MULTIVITAMINS, THERA 1 EACH TAB PO SCH (08:11)
[2018-01-01] MEDS: FAMOTIDINE 20 MG TAB PO SCH (08:11)
[2018-01-01] MEDS: MORPHINE SULFATE ER 30 MG TABLET PO SCH (09:41)
[2018-01-01] MEDS ORDERED: HYDROcodone/APAP 5-325MG 1 EACH TAB PO PRN (10:43)
--- NOTE | 2018-01-01 12:25 | P.PN ---
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 Patient is on cefepime presently. Patient is quite weak feels tired and rundown. 12/28/2017 maintained on cefepime, receiving IV fluid hydration, diet intake improved with no nausea or vomiting. Significant improvement in WBC is coming up to 9.1, renal function improving. Extremely weak. Received prn morphine earlier for right upper quadrant abdominal pain which states makes her too exhausted to participate with physical therapy. Further Physical therapy this afternoon pending. Blood culture positive for pseudomonas aeruginosa, and preliminary repeat blood cultures negative at 24 hours. 12/29/17 Maintained on IV antibiotics.Afebrile, WBC 20.6. Exhausted after participating with physical therapy today. Extremely weak. Family members at bedside, discussed poor prognosis. 12/30/17 maintained on cefepime, T-max 100.8, WBC 27. Appears very tired, states pain unchanged in the right upper quadrant area- Family at bedside, updated. Transfer to subacute rehab placed on hold. 12/31/2017 Patient weakness improved patient has redness in the right lower extremity because of which we obtain a Doppler of the right approximately patient is not on due to prophylaxis because of thrombocytopenia she had on admission. We'll also repeat CBC and basic metabolic profile tomorrow. 01/01/2018 Still quite lethargic, IV fluids will be discontinued as patient is hyperchloremia patient's pain regimen was changed from long-acting morphine toas -needed basis Constitutional: as mentioned above no fever today Cardio vascular: denied any chest pain, palpitations Gastrointestinal denied any nausea vomiting Pulmonary: Denied any shortness of breath cough Neurologic denied any new focal deficits Objective - Vital Signs Vital signs: Vital Signs Temp 98.2 F 01/01/18 05:44 Pulse 84 01/01/18 05:44 Resp 16 01/01/18 05:44 BP 146/81 01/01/18 05:44 Pulse Ox 94 L 01/01/18 05:44 Intake & Output 12/31/17 01/01/18 01/01/18 18:59 06:59 18:59 Intake Total 700 Output Total 600 1400 Balance 100 -1400 Intake: IV 700 Cefepime 2 gm In Sodium 100 Chloride 0.9% 50 ml @ 100 mls/hr IVPB Q12HR [facility] Rx #:[id number] Sodium Chloride 0.9% 1, 600 000 ml @ 75 mls/hr IV . [id number] [facility] Rx#:[id number] Output: Urine 1400 Stool 600 Other: Voiding Method Indwelling Catheter Indwelling Catheter Indwelling Catheter - Exam GENERAL: The patient is alert and oriented x3, HEENT: Pupils are round and equally reacting to light. EOMI. No scleral icterus. No conjunctival pallor. Normocephalic, atraumatic. No pharyngeal erythema. No thyromegaly. CARDIOVASCULAR: S1 and S2 present. No murmurs, rubs, or gallops. PULMONARY: Chest is clear to auscultation, no wheezing or crackles. ABDOMEN: Soft, nondistended, normoactive bowel sounds. mass in the upper abdomen which is sarcoma minimal tenderness in that area MUSCULOSKELETAL: No joint swelling or deformity. EXTREMITIES: No cyanosis, clubbing, patient does have edema and redness of the right lower extremity highly concerning for DVT NEUROLOGICAL: Gross neurological examination did not reveal any focal deficits. SKIN: No rashes. - Labs CBC & Chem 7: 01/01/18 06:42 01/01/18 06:42 Labs: Abnormal Lab Results - Last 24 Hours (Table) 01/01/18 01/01/18 Range/Units 06:42 06:42 WBC 33.2 H* (3.8-10.6) k/uL RBC 2.78 L (3.80-5.40) m/uL Hgb 8.2 L (11.4-16.0) gm/dL Hct 25.5 L (34.0-46.0) % Plt Count 108 L (150-450) k/uL Potassium 3.4 L (3.5-5.1) mmol/L Chloride 117 H (98-107) mmol/L Carbon Dioxide 19 L (22-30) mmol/L BUN 22 H (7-17) mg/dL Calcium 8.0 L (8.4-10.2) mg/dL Microbiology - Last 24 Hours (Table) 12/27/17 08:08 Blood Culture - Preliminary Blood No Growth after 120 hours 12/30/17 17:22 Blood Culture - Preliminary Blood No Growth after 24 hours 12/26/17 13:11 Blood Culture - Preliminary Blood No Growth after 120 hours Assessment and Plan Plan: - sepsis and bacteremia: patient appears to have both the right middle lobe pneumonia and (sided pyelonephritis from the CAT scan reading patient is safe p.m. repeat blood cultures are so far negative. 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 -hypertension patient is actually hypotensive because of sepsis lisinopril was discontinued -Chronic kidney disease stage III: Kidney function is better than her baseline now -Rule out right lower limb DVT.
[2018-01-01] MEDS: MORPHINE SULFATE ER 15 MG TABLET PO SCH (17:27)
[2018-01-01] MEDS: traMADol 50 MG TAB PO PRN (21:20)
[2018-01-01] MEDS: ONDANSETRON 4 MG/2 ML VIAL IVP PRN (21:20)
[2018-01-02] MEDS: MORPHINE SULFATE ER 15 MG TABLET PO SCH ×3 (00:06→17:15)
[2018-01-02] MEDS: SALT AND SODA MOUTHWASH 1,000 ML PO SCH ×6 (00:06→23:53)
[2018-01-02] MEDS: HEPARIN SODIUM,PORCINE 5,000 UNIT/ML 1 ML VIAL SQ SCH ×4 (00:07→23:51)
--- NOTE | 2018-01-02 06:59 | PN ---
PROGRESS NOTE DATE OF SERVICE: 01/01/2018 REASON FOR FOLLOWUP: Pseudomonas bacteremia and pneumonia. INTERVAL HISTORY: The patient is afebrile. She seemed to be feeling better. Breathing comfortably. Denies significant chest pain, occasional cough. No abdominal pain or any diarrhea. PHYSICAL EXAMINATION: On examination, blood pressure is 159/89 with a pulse of 83, temperature of 97.9. She 92% on room air. General description is an elderly female up in the bed, up in no distress. RESPIRATORY SYSTEM: Unlabored breathing. Decreased breath sounds at the bases, no wheeze. HEART: S1, S2. Regular rate and rhythm. ABDOMEN: Soft, no tenderness. EXTREMITIES: No edema of the feet. LABS: Hemoglobin 8.2, white count 33.2 with a BUN of 28, creatinine 0.79. Blood culture repeat has been negative. DIAGNOSTIC IMPRESSION AND PLAN: Patient admitted to the hospital with sepsis neutropenia concern for now with Pseudomonas bacteremia likely the source is pneumonia. The patient at this time will continue cefepime for another 10 to 12 days to finish the course of therapy and would recommend obtaining blood cultures a week after finishing antibiotics to make sure no recurrence of bacteremia. Continue supportive care. MMODL / IJN: [id number] /
[2018-01-02] MEDS: CALCIUM CARBONATE 500 MG CHEWABLE PO SCH (09:06)
[2018-01-02] MEDS: CEFEPIME 2 GM in SODIUM CHLORIDE 0.9% 50 ML IVPB SCH ×2 (09:06→20:21)
[2018-01-02] MEDS: PANTOPRAZOLE 40 MG/10 ML VIAL IVP SCH (09:07)
[2018-01-02] MEDS: FAMOTIDINE 20 MG TAB PO SCH (09:07)
[2018-01-02] MEDS: MULTIVITAMINS, THERA 1 EACH TAB PO SCH (09:07)
[2018-01-02] MEDS: LACTULOSE 20 GM/30 ML CUP PO SCH ×2 (09:07→21:20)
[2018-01-02] MEDS: MAG HYDROX/AL HYDROX/SIMETH 30 ML, diphenhydrAMINE ELIXIR 75 MG, LIDOCAINE VISCOUS 30 ML PO SCH ×9 (09:07→21:52)
--- NOTE | 2018-01-02 10:42 | P.DS ---
Providers Date of admission: 12/26/17 01:57 Attending physician: Durga Neal Consults: 12/26/17 01:55 Consult Physician Stat Consulting Provider: Adolfo Gusman Consult Reason/Comments: Febrile Neutropenia Do you want consulting provider notified?: Already Contacted 12/26/17 12:07 Consult Physician Routine Consulting Provider: Stewart Vega Consult Reason/Comments: Bacteremia Do you want consulting provider notified?: Yes Primary care physician: Ani Nora [facility] Course: 62-year-old female with history of Lyo myosarcoma, admitted for febrile neutropenia , CAT scan of the abdomen was obtained to evaluate for any intra- abdominal source of infection as patient has gram-negative bacteremia although patient appears to have pneumonic process in right middle lung valerio along with suspicion of pyelonephritison the left side. Patient is on cefepime presently. Patient is quite weak feels tired and rundown. 12/28/2017 maintained on cefepime, receiving IV fluid hydration, diet intake improved with no nausea or vomiting. Significant improvement in WBC is coming up to 9.1, renal function improving. Extremely weak. Received prn morphine earlier for right upper quadrant abdominal pain which states makes her too exhausted to participate with physical therapy. Further Physical therapy this afternoon pending. Blood culture positive for pseudomonas aeruginosa, and preliminary repeat blood cultures negative at 24 hours. 12/29/17 Maintained on IV antibiotics.Afebrile, WBC 20.6. Exhausted after participating with physical therapy today. Extremely weak. Family members at bedside, discussed poor prognosis. 12/30/17 maintained on cefepime, T-max 100.8, WBC 27. Appears very tired, states pain unchanged in the right upper quadrant area- Family at bedside, updated. Transfer to subacute rehab placed on hold. 12/31/2017 Patient weakness improved patient has redness in the right lower extremity because of which we obtain a Doppler of the right approximately patient is not on due to prophylaxis because of thrombocytopenia she had on admission. We'll also repeat CBC and basic metabolic profile tomorrow. 01/01/2018 Still quite lethargic, IV fluids will be discontinued as patient is hyperchloremia patient's pain regimen was changed from long-acting morphine toas -needed basis 01/02/2018 Patient is clinically doing well and infectious disease is recommending cefepime for 10 more days for pseudomonas aeruginosa bacteremia - Exam GENERAL: The patient is alert and oriented x3, HEENT: Pupils are round and equally reacting to light. EOMI. No scleral icterus. No conjunctival pallor. Normocephalic, atraumatic. No pharyngeal erythema. No thyromegaly. CARDIOVASCULAR: S1 and S2 present. No murmurs, rubs, or gallops. PULMONARY: Chest is clear to auscultation, no wheezing or crackles. ABDOMEN: Soft, nondistended, normoactive bowel sounds. mass in the upper abdomen which is sarcoma minimal tenderness in that area MUSCULOSKELETAL: No joint swelling or deformity. EXTREMITIES: No cyanosis, clubbing, patient does have edema and redness of the right lower extremity highly concerning for DVT NEUROLOGICAL: Gross neurological examination did not reveal any focal deficits. SKIN: No rashes. Assessment and Plan Plan: - sepsis and bacteremia: patient appears to have both the right middle lobe pneumonia and (sided pyelonephritis from the CAT scan reading patient is safe p.m. repeat blood cultures are so far negative. 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 -hypertension patient is actually hypotensive because of sepsis lisinopril was discontinued -Chronic kidney disease stage III: Kidney function is better than her baseline now -Rule out right lower limb DVT. Patient Condition at Discharge: Serious Plan - Discharge Summary Discharge Rx Participant: Yes New Discharge Prescriptions: New Famotidine [Pepcid] 20 mg PO DAILY tab Morphine Sulfate ER [Ms Contin] 15 mg PO Q8HR #30 tablet traMADol HCl [Ultram] 50 mg PO Q6H PRN #30 tab PRN Reason: Pain Continue Naproxen Sodium [Aleve] 220 mg PO DAILY Multivitamins, Thera [Multivitamin (formulary)] 1 tab PO DAILY Fish Oil/Dha/Epa [Fish Oil 1,200 mg Fish Oil] 1 each PO DAILY Cranberry Fruit Extract [Cranberry] 500 mg PO DAILY Calcium Carbonate [Calcium] 600 mg PO DAILY Cetirizine HCl [Zyrtec] 10 mg PO DAILY Lactulose 10 gm PO TID LORazepam [Ativan] 1 mg PO QID Ondansetron HCl 8 mg PO TID PRN PRN Reason: Nausea Discontinued Ibuprofen [Motrin] 600 mg PO HS Morphine Sulfate ER [Ms Contin 30Mg] 30 mg PO Q12HR Morphine Sulfate Ir [MSIR] 15 mg PO QID PRN PRN Reason: Pain Discharge Medication List Calcium Carbonate [Calcium] 600 mg PO DAILY 12/21/16 [History] Cranberry Fruit Extract [Cranberry] 500 mg PO DAILY 12/21/16 [History] Fish Oil/Dha/Epa [Fish Oil 1,200 mg Fish Oil] 1 each PO DAILY 12/21/16 [History] Multivitamins, Thera [Multivitamin (formulary)] 1 tab PO DAILY 12/21/16 [History ] Naproxen Sodium [Aleve] 220 mg PO DAILY 12/21/16 [History] Cetirizine HCl [Zyrtec] 10 mg PO DAILY 12/26/17 [History] LORazepam [Ativan] 1 mg PO QID 12/26/17 [History] Lactulose 10 gm PO TID 12/26/17 [History] Ondansetron HCl 8 mg PO TID PRN 12/26/17 [History] Famotidine [Pepcid] 20 mg PO DAILY tab 01/02/18 [Rx] Morphine Sulfate ER [Ms Contin] 15 mg PO Q8HR #30 tablet 01/02/18 [Rx] traMADol HCl [Ultram] 50 mg PO Q6H PRN #30 tab 01/02/18 [Rx] Follow up Appointment(s)/Referral(s): Ani Melendez MD [Primary Care Provider] - 3 Days Jose Juan Salter MD [STAFF PHYSICIAN] - 3 Days [facility], [NON-STAFF] - Discharge Disposition: TRANSFER TO SNF/F
--- NOTE | 2018-01-02 11:20 | PN ---
PROGRESS NOTE DATE OF SERVICE: 01/02/2018 REASON FOR FOLLOWUP: Pseudomonas bacteremia, possible pneumonia. INTERVAL HISTORY: The patient is afebrile. She is currently breathing comfortably. Denies significant chest pain or cough. No abdominal pain. No nausea, vomiting, or any diarrhea. PHYSICAL EXAMINATION: On examination, blood pressure is 130/82 with a pulse of 71, temperature of 98. She is 96% on room air. General description is a middle-aged female lying in bed in no distress. RESPIRATORY SYSTEM: Unlabored breathing, clear to auscultation anteriorly. HEART: S1, S2. Regular rate and rhythm. ABDOMEN: Soft, no tenderness. LABS: Hemoglobin 8.2, white count of 33.2. BUN of 22, creatinine 0.79. DIAGNOSTIC IMPRESSION AND PLAN: Patient with Pseudomonas bacteremia, source is likely pneumonia. No other clinical focus. Blood cultures was negative very quickly, that will make it less likely to be from the . She will be given cefepime 2 grams q.12 for another 10 days to finish course of therapy. Recommend to repeat blood cultures peripherally and antibiotic therapy to make sure no evidence of any recurrence of bacteremia. Continue supportive care. MMODL / IJN: [id number] /
[2018-01-03] MEDS: MORPHINE SULFATE ER 15 MG TABLET PO SCH ×3 (04:45→15:51)
[2018-01-03] MEDS: SALT AND SODA MOUTHWASH 1,000 ML PO SCH ×3 (05:39→15:52)
[2018-01-03] MEDS: HEPARIN SODIUM,PORCINE 5,000 UNIT/ML 1 ML VIAL SQ SCH ×2 (08:16→15:52)
[2018-01-03] MEDS: FAMOTIDINE 20 MG TAB PO SCH (08:16)
[2018-01-03] MEDS: MULTIVITAMINS, THERA 1 EACH TAB PO SCH (08:16)
[2018-01-03] MEDS: LACTULOSE 20 GM/30 ML CUP PO SCH (08:16)
[2018-01-03] MEDS: CALCIUM CARBONATE 500 MG CHEWABLE PO SCH (08:16)
[2018-01-03] MEDS: MAG HYDROX/AL HYDROX/SIMETH 30 ML, diphenhydrAMINE ELIXIR 75 MG, LIDOCAINE VISCOUS 30 ML PO SCH ×6 (08:17→15:52)
[2018-01-03] MEDS: CEFEPIME 2 GM in SODIUM CHLORIDE 0.9% 50 ML IVPB SCH (08:17)
--- NOTE | 2018-01-03 11:34 | P.DS ---
Providers Date of admission: 12/26/17 01:57 Attending physician: Durga Neal Consults: 12/26/17 01:55 Consult Physician Stat Consulting Provider: Adolfo Gusman Consult Reason/Comments: Febrile Neutropenia Do you want consulting provider notified?: Already Contacted 12/26/17 12:07 Consult Physician Routine Consulting Provider: Stewart Vega Consult Reason/Comments: Bacteremia Do you want consulting provider notified?: Yes Primary care physician: Ani Nora [facility] Course: Patient was not discharged yesterday because of the prior authorization issues from the insurance company. Hopefully she'll be discharged today no significant change compared to yesterday no overnight events. Please refer to my dictation of discharge summary for from yesterday for further details. Next Patient was seen and examined. PHYSICAL EXAMINATION: GENERAL: The patient is alert and oriented x3, not in any acute distress. Well developed, well nourished. HEENT: Pupils are round and equally reacting to light. EOMI. No scleral icterus. No conjunctival pallor. Normocephalic, atraumatic. No pharyngeal erythema. No thyromegaly. CARDIOVASCULAR: S1 and S2 present. No murmurs, rubs, or gallops. PULMONARY: Chest is clear to auscultation, no wheezing or crackles. ABDOMEN: Soft, nontender, nondistended, normoactive bowel sounds. No palpable organomegaly. MUSCULOSKELETAL: No joint swelling or deformity. EXTREMITIES: No cyanosis, clubbing, or pedal edema. NEUROLOGICAL: Gross neurological examination did not reveal any focal deficits. SKIN: No rashes. Patient Condition at Discharge: Serious Plan - Discharge Summary Discharge Rx Participant: Yes New Discharge Prescriptions: New Famotidine [Pepcid] 20 mg PO DAILY tab Morphine Sulfate ER [Ms Contin] 15 mg PO Q8HR #30 tablet traMADol HCl [Ultram] 50 mg PO Q6H PRN #30 tab PRN Reason: Pain Continue Multivitamins, Thera [Multivitamin (formulary)] 1 tab PO DAILY Fish Oil/Dha/Epa [Fish Oil 1,200 mg Fish Oil] 1 each PO DAILY Cranberry Fruit Extract [Cranberry] 500 mg PO DAILY Calcium Carbonate [Calcium] 600 mg PO DAILY Cetirizine HCl [Zyrtec] 10 mg PO DAILY Lactulose 10 gm PO TID LORazepam [Ativan] 1 mg PO QID Ondansetron HCl 8 mg PO TID PRN PRN Reason: Nausea Discontinued Ibuprofen [Motrin] 600 mg PO HS Naproxen Sodium [Aleve] 220 mg PO DAILY Morphine Sulfate ER [Ms Contin 30Mg] 30 mg PO Q12HR Morphine Sulfate Ir [MSIR] 15 mg PO QID PRN PRN Reason: Pain Discharge Medication List Calcium Carbonate [Calcium] 600 mg PO DAILY 12/21/16 [History] Cranberry Fruit Extract [Cranberry] 500 mg PO DAILY 12/21/16 [History] Fish Oil/Dha/Epa [Fish Oil 1,200 mg Fish Oil] 1 each PO DAILY 12/21/16 [History] Multivitamins, Thera [Multivitamin (formulary)] 1 tab PO DAILY 12/21/16 [History ] Cetirizine HCl [Zyrtec] 10 mg PO DAILY 12/26/17 [History] LORazepam [Ativan] 1 mg PO QID 12/26/17 [History] Lactulose 10 gm PO TID 12/26/17 [History] Ondansetron HCl 8 mg PO TID PRN 12/26/17 [History] Famotidine [Pepcid] 20 mg PO DAILY tab 01/02/18 [Rx] Morphine Sulfate ER [Ms Contin] 15 mg PO Q8HR #30 tablet 01/02/18 [Rx] traMADol HCl [Ultram] 50 mg PO Q6H PRN #30 tab 01/02/18 [Rx] Follow up Appointment(s)/Referral(s): Ani Melendez MD [Primary Care Provider] - 3 Days Jose Juan Salter MD [STAFF PHYSICIAN] - 3 Days [facility], [NON-STAFF] - Discharge Disposition: TRANSFER TO SNF/F
[2018-01-03] MEDS ORDERED: CALCIUM CARBONATE 500 MG CHEWABLE PO PRN (13:35)
[2018-01-03 15:46] VITALS: BP 184/81; PULSE 72; TEMP 98
--- NOTE | 2018-01-03 16:39 | PN ---
PROGRESS NOTE DATE OF SERVICE: 01/03/2018. REASON FOR FOLLOWUP VISIT: Pseudomonas bacteremia likely pneumonia. INTERVAL HISTORY: The patient is afebrile. She is breathing comfortably. Denies significant chest pain or cough. No abdominal pain. No nausea, vomiting, or any diarrhea. EXAMINATION: Blood pressure is 184/81 with a pulse of 72, temperature of 98. She is 97% on room air. General description is a middle-aged female lying in bed in no distress. Respiratory system: Unlabored breathing. Clear to auscultation anteriorly. Heart S1, S2 regular rate and rhythm. Abdomen soft, no tenderness. LABS: No new labs have been obtained today. DIAGNOSTIC IMPRESSION AND PLAN: Patient with Pseudomonas bacteremia, source likely pneumonia. Currently waiting for discharge to rehab. Plan to continue with cefepime 2 g q.12h for another 10 days with repeat blood culture to finish antibiotic therapy. Continue supportive care. MMODL / IJN: [id number] /
--- NOTE | 2018-01-03 16:53 | P.PN ---
Subjective Progress Note Date: 01/03/18 Principal diagnosis: febrile neutropenia, sarcoma Pt seen today in follow up, she denies fevers, oral intake is improving, she vomits only when she take the lactulose, slight cough, no chest pain, she has epigastric abd pain, intermittent, not r/t eating, her stools are watery, no bloody or mucus, mild swelling of the legs, she was up in chair and starting to ambulate with assistance in the room. She wants to shower. Objective - Vital Signs Vital signs: Vital Signs Temp 98 F 01/03/18 15:00 Pulse 72 01/03/18 15:00 Resp 16 01/03/18 15:00 BP 184/81 01/03/18 15:00 Pulse Ox 97 01/03/18 15:00 Intake & Output 01/02/18 01/03/18 01/03/18 18:59 06:59 18:59 Intake Total 50 110 650 Output Total 486 010 5526 Balance -650 -640 -400 Weight 81 kg Intake: IV 50 50 650 Cefepime 2 gm In Sodium 50 50 50 Chloride 0.9% 50 ml @ 100 mls/hr IVPB Q12HR [facility] Rx #:[id number] Sodium Chloride 0.9% 1, 600 000 ml @ 75 mls/hr IV . [id number] [facility] Rx#:[id number] Oral 60 Output: Urine 052 841 [id number] Uretheral (Daniels) 700 550 Other: Voiding Method Indwelling Catheter Indwelling Catheter Indwelling Catheter # Voids 1 - Constitutional General appearance: Present: cooperative, no acute distress - EENT Eyes: Present: anicteric sclerae, EOMI, normal appearance ENT: Present: normal oropharynx - Respiratory Respiratory: bilateral: diminished - Cardiovascular Heart sounds: normal: S1, S2 - Peripheral edema leg Peripheral Edema: bilateral: Trace - Gastrointestinal General gastrointestinal: Present: hyperactive bowel sounds, soft Localized gastrointestinal: tender: epigastric periumbilical, guarding: epigastric periumbilical - Neurologic Neurologic: Present: CNII-XII intact - Musculoskeletal Musculoskeletal: Present: generalized weakness, strength equal bilaterally - Psychiatric Psychiatric: Present: A&O x's 3, appropriate affect, intact judgment & insight - Labs CBC & Chem 7: 01/01/18 06:42 01/01/18 06:42 Labs: Microbiology - Last 24 Hours (Table) 12/30/17 17:22 Blood Culture - Preliminary Blood No Growth after 72 hours Assessment and Plan (1) Febrile neutropenia Current Visit: Yes Status: Resolved Priority: High Code(s): D70.9 - NEUTROPENIA, UNSPECIFIED; R50.81 - FEVER PRESENTING WITH CONDITIONS CLASSIFIED ELSEWHERE SNOMED Code(s): 190875993 (2) Pancytopenia due to antineoplastic chemotherapy Narrative/Plan: GCSF recovered WBC-elevated today Hgb and Plt slowly improving Pt had 1 cycle of chemo and did well considering she had an untreated UTI. Pt will return to see her Primary Oncologist for further plan of care. Current Visit: Yes Status: Acute Priority: High Code(s): D61.810 - ANTINEOPLASTIC CHEMOTHERAPY INDUCED PANCYTOPENIA; T45.1X5A - ADVERSE EFFECT OF ANTINEOPLASTIC AND IMMUNOSUP DRUGS, INIT SNOMED Code(s): 450486927067745 (3) Leiomyosarcoma Narrative/Plan: Pt disease was limited to abd, no mets, plan was for neoadjuvant chemo then possible resection with adjuvant chemo if necessary. Pt does need rehab after her acute illness, which she is anxious to participate in. Pt was acutely ill with UTI and bactremia just after receiving chemo so, with recovery and rehab pt could very well be a candidate to continue treatment. She is going to follow up with her primary Oncologist Dr. Kiran in the next 1-2 weeks and together they will decide what is the best plan for pt. Current Visit: Yes Status: Acute Priority: High Code(s): C49.9 - MALIGNANT NEOPLASM OF CONNECTIVE AND SOFT TISSUE, UNSP SNOMED Code(s): 029773402 Plan: All questions answered to the best of my ability Did discontinue lactulose for now due to vomiting
== END 2018-01-03 17:15 | DRG 871 ==
LOC: EC 22:45 → 4MS4W 12-26 01:57 → 5ONC 12-26 19:00
PROVIDERS: ADMIT Internal Medicine; ATTEND Internal Medicine
DX: A41.50 Gram-negative sepsis, unspecified (principal); D61.810 Antineoplastic chemotherapy induced pancytopenia; J15.1 Pneumonia due to Pseudomonas; C49.4 Malignant neoplasm of connective and soft tissue of abdomen; N17.9 Acute kidney failure, unspecified; I82.401 Acute embolism and thrombosis of unspecified deep veins of right lower extremity; N18.3 Chronic kidney disease, stage 3 (moderate); Q87.81 Alport syndrome; N12 Tubulo-interstitial nephritis, not specified as acute or chronic; E86.0 Dehydration; B96.5 Pseudomonas (aeruginosa) (mallei) (pseudomallei) as the cause of diseases classified elsewhere; R50.81 Fever presenting with conditions classified elsewhere; I12.9 Hypertensive chronic kidney disease with stage 1 through stage 4 chronic kidney disease, or unspecified chronic kidney disease; I87.2 Venous insufficiency (chronic) (peripheral); T45.1X5A Adverse effect of antineoplastic and immunosuppressive drugs, initial encounter; Z80.0 Family history of malignant neoplasm of digestive organs; Z90.710 Acquired absence of both cervix and uterus; Z79.1 Long term (current) use of non-steroidal anti-inflammatories (NSAID); Z79.899 Other long term (current) drug therapy
CPT/HCPCS: 36415; 71046; 74176; 80048; 80053; 81001; 83605; 85025; 85027; 86850; 86900; 86901; 87040; 87077; 87086; 87186; 87502; 96365; 96367; 96368; 96375; 99285

== ENCOUNTER → 2018-03-03 | Outpatient (CLI) | payer BC ==
[~2018-03-03] MED LIST changes: -LACTATED RINGERS 1,000 ML IV SCH; +PEGFILGRASTIM 6 MG/0.6 ML SYRINGE SQ ONE
[2018-03-03 13:37] VITALS: BP 123/88; PULSE 70; RESP 16; TEMP 97.9
== END | disposition home or self-care (01) ==
LOC: PROCWHC3 13:10
PROVIDERS: ATTEND Internal Medicine Hematology & Oncology
DX: C49.9 Malignant neoplasm of connective and soft tissue, unspecified (principal); D70.1 Agranulocytosis secondary to cancer chemotherapy
CPT/HCPCS: 96372; J2505

== ENCOUNTER → 2018-06-02 | Outpatient (CLI) | payer BC ==
[2018-06-02 15:24] VITALS: BP 121/87; PULSE 118; RESP 16; TEMP 98.1
== END | disposition home or self-care (01) ==
LOC: PROCWHC3 15:17
PROVIDERS: ATTEND Internal Medicine Hematology & Oncology
DX: D70.1 Agranulocytosis secondary to cancer chemotherapy (principal)
CPT/HCPCS: 96372; J2505

== ENCOUNTER → 2018-09-19 | Outpatient (CLI) | payer BC ==
--- NOTE | 2018-09-19 12:08 | US ---
EXAMINATION TYPE: US venous doppler duplex UE LT DATE OF EXAM: 09/19/2018 COMPARISON: NONE CLINICAL HISTORY: C49.4 Malignant neoplasm of connective. Pt having left arm/chest pain, pt has chemo port in place on left side SIDE PERFORMED: Left Grayscale, color doppler, spectral doppler imaging performed of the deep veins of the left upper extr emity. There is normal flow, compressibility and vascular waveforms. Left Arm: Negative for DVT Results called to Genaro at [facility] at time of exam IMPRESSION: No sonographic evidence of deep venous thrombosis within the left upper extremity.
--- NOTE | 2018-09-19 14:14 | XR ---
EXAMINATION TYPE: XR chest 2V DATE OF EXAM: 09/19/2018 COMPARISON: Prior chest x-ray 12/26/2017 HISTORY: Left axillary pain, leiomyosarcoma TECHNIQUE: Frontal and lateral views of the chest are obtained. FINDINGS: Right hemidiaphragm remains elevated. Bandlike area of increased attenuation at the right lung base likely represents scar or atelectasis. Port-A-Cath is present in the left pectoral region, distal tip of the catheter is overlying superior vena cava. Patient is rotated. No evident pneumothor ax or sizable pleural effusion, there is blunting of the posterior costophrenic sulcus on the right. Cardiomediastinal silhouette, pulmonary vascularity and prosper are stable. IMPRESSION: Probable chronic findings. There may be basilar atelectasis or scarring. Difficult to ex clude small effusion.
== END | disposition home or self-care (01) ==
LOC: RADUSWWP 11:14
PROVIDERS: ATTEND Radiology Radiation Oncology
DX: C49.4 Malignant neoplasm of connective and soft tissue of abdomen (principal); R06.02 Shortness of breath; Z92.3 Personal history of irradiation
CPT/HCPCS: 71046

== ENCOUNTER → 2019-12-26 | Outpatient (CLI) | payer BC ==
--- NOTE | 2019-12-26 15:50 | CT ---
EXAMINATION TYPE: CT brain wo con DATE OF EXAM: 12/26/2019 COMPARISON: None HISTORY: 64-year-old female Headache, dizziness and vomiting. TECHNIQUE: Examination was done in axial plane without intravenous contrast. Coronal and sagittal r econstructions performed. CT DLP: 1059.4 mGycm Automated exposure control for dose reduction was used. FINDINGS: There is no evidence of acute intracranial hemorrhage, acute ischemic changes, mass, mass-effect, or extra-axial fluid collection. There is no effacement of cerebral sulci or basal subarachnoid cister ns. There is no hydrocephalus. There is no midline shift. Phillips-white matter distinction is preserv ed. Benign basal ganglionic calcifications. Paranasal sinuses and mastoid air cells are well pneumatized. Orbits and globes are intact. IMPRESSION: No acute intracranial abnormality seen.
== END | disposition home or self-care (01) ==
LOC: RADCTMAIN 15:21
PROVIDERS: ATTEND Family Medicine
DX: R51 Headache (principal)
CPT/HCPCS: 70450

== ENCOUNTER → 2020-05-15 | Outpatient (CLI) | payer BC, MEDICARE ==
--- NOTE | 2020-05-15 15:02 | CT ---
EXAMINATION TYPE: CT ChestAbdPelvis wo/w con DATE OF EXAM: 05/15/2020 COMPARISON: CT chest 09/11/[address] abdomen pelvis 12/27/2017 HISTORY: 64-year-old female C49.4, follow up connective tissue cancer TECHNIQUE: Contiguous axial scanning of the chest, abdomen, and pelvis performed without and with IV Contrast, patient injected with 100 mL of Isovue 300. Delayed images through the kidneys were obtaine d. Coronal/sagittal reconstructions performed. CT DLP: 1090.1 mGycm Automated exposure control for dose reduction was used. FINDINGS: CHEST: Heart normal size without pericardial effusion. Aorta is normal caliber with conventional arch vessel branching anatomy. No thoracic lymphadenopathy by CT size criteria. Strandy atelectasis or scarring at the anterior right base and peripheral right lower lobe. No consol idation or pleural effusion. ABDOMEN: Small hiatal hernia. A couple hepatic hypodensities at the right liver dome are unchanged, probable cysts. Portal venous system is patent. No biliary ductal dilatation. Cholecystectomy clips. Adrenal glands and spleen appear within normal limits. Numerous subcentimeter hypodensities within th e kidneys are unchanged, too small for accurate CT characterization, probable cysts. Small diverticulum of the second portion of the duodenum projecting to the pancreatic head region. There is a complex appearing fluid collection interposed in the region of the darryl hepatis extending into the upper portacaval and aortocaval region and extending posteriorly to abut the medial limb of the right adrenal gland. This measures approximately 9.7 cm AP by 5.1 cm wide. On 09/11/2019, this m easured up to 11.9 x 6.5 cm. Significant collapse of the anterior portion of the low distention which previously measured up to 5.8 cm thick and now measuring only 2.0 cm thick. There seems to be some internal complexity especially along the posterior extension, similar to prior exam. Pancreatic neck region courses posteriorly along this abnormality. Generalized pancreatic atrophy and borderline prominence to the main pancreatic duct measuring 3 mm. No dilated small bowel, free fluid, or free air. No mesenteric or retroperitoneal lymphadenopathy see n. Oral contrast progressed to the upper descending colon. No pericolonic inflammatory change. Only mild stool distally. PELVIS: Bladder urine distended. Numerous pelvic phleboliths. Suspect visualization of the right ovary. No ab normal fluid collection the pelvis or pelvic lymphadenopathy seen. BONES: Mild degenerative changes at the hips. Facet arthropathy mid to lower lumbar spine. Endplate spondylo sis mid to lower thoracic spine. Posterior disc osteophyte complex at T11-T12 causes mild to moderate spinal canal stenosis. No osseous destructive process seen. IMPRESSION: COMPLEX CYSTIC MASS/FLUID COLLECTION INTERPOSED IN THE REGION OF THE DARRYL HEPATIS EXTENDING INTO THE AORTOCAVAL AND PORTACAVAL REGION AND POSTERIORLY TO ABUT THE MEDIAL LIMB OF THE RIGHT ADRENAL GLAND IS REDEMONSTRATED. THIS CONTINUES TO DECREASE IN SIZE CURRENTLY MEASURING 9.7 X 5.1 CM VERSUS 11.9 X 6.5 CM, PREVIOUSLY. ANTERIORLY, THE FLUID COMPONENT IS SIGNIFICANTLY DECOMPRESSED MEASURING ONLY 2.0 CM THICK NOW VERSUS 5.8 CM, PREVIOUSLY.
== END | disposition home or self-care (01) ==
LOC: RADPROMAIN 10:27
PROVIDERS: ATTEND Radiology Radiation Oncology
DX: C49.4 Malignant neoplasm of connective and soft tissue of abdomen (principal); Z92.21 Personal history of antineoplastic chemotherapy; Z92.3 Personal history of irradiation; Z90.710 Acquired absence of both cervix and uterus
CPT/HCPCS: 82565; 84520; 71270; 74178; J1642; Q9967

== ENCOUNTER → 2020-08-25 | Outpatient (CLI) | payer MEDICARE ==
--- NOTE | 2020-08-25 12:30 | CT ---
EXAMINATION TYPE: CT abdomen pelvis wo/w con DATE OF EXAM: 08/25/2020 HISTORY: Mal. Jesus. of connective & Soft Tissue of Abd CT DLP: 1185.3mGycm Automated Exposure Control for Dose Reduction was Utilized. CONTRAST: CT scan of the abdomen and pelvis is performed with oral and without and with IV Contrast, patient in jected with 80 mL of Isovue 300. COMPARISON: CT May 15, 2020 [address] older CTs FINDINGS: LUNG BASES: Mild right basilar linear scarring and/or atelectasis. LIVER/GB: Cholecystectomy clips redemonstrated. Tiny subcentimeter lesions anterior hepatic dome stab le presumed benign. At the russel hepatis extending into the upper portal caval region there is redemonstration of low den se lesion surrounded by surgical clips measuring 9.4 cm long axis axial image 22 series 9. This measu res roughly 5.5 cm transversely axial image 21. Postcontrast images show some heterogeneous enhanceme nt particularly posterior inferior nodular area seen best delayed phase image 21 series 13, this is s imilar appearance to prior study. Mass effect on the subhepatic and proximal intrahepatic IVC pushed anteriorly and to right of midline is redemonstrated. PANCREAS: Redemonstration of pancreatic ductal dilatation stable measuring 3 to 4 mm. Generalized wilde creatic atrophy redemonstrated. Pancreatic head and neck has mass effect pushed anteriorly similar to prior. SPLEEN: No significant abnormality is seen. ADRENALS: No significant abnormality is seen. KIDNEYS: Tiny subcentimeter hypodense lesions in both kidneys stable. Some cortical thinning bilatera lly. Symmetrical visually uptake and excretion noted without hydronephrosis. Air-fluid level in a mil dly distended bladder. BOWEL: Oral contrast reaches level of the splenic flexure. There is no suspicion of small or large deirdre wel dilatation. Diverticula in the sigmoid colon. No CT evidence for acute diverticulitis. Normal-monik earing appendix from base of cecum in the right upper pelvis. UTERUS/ADNEXA: Uterus surgically absent or markedly atrophic. Scattered pelvic phleboliths. LYMPH NODES: No greater than 1cm new abdominal or pelvic lymph nodes are appreciated. OSSEOUS STRUCTURES: Mild to moderate disc space narrowing lumbosacral junction. Facet arthropathy low er lumbar levels. OTHER: No significant additional abnormality is seen. IMPRESSION: 1. No significant interval change in the complex low dense mass with some heterogeneous enhancement a t site of surgery russel hepatis. No suspicious new mass or adenopathy noted. Local mass effect remain s present. 2. New air-fluid level in bladder. Correlate clinically for recent catheterization otherwise other et iologies such as fistula need to be considered.
== END | disposition home or self-care (01) ==
LOC: RADPROMAIN 08:42
PROVIDERS: ATTEND Radiology Radiation Oncology
DX: C49.4 Malignant neoplasm of connective and soft tissue of abdomen (principal); N32.89 Other specified disorders of bladder; Z92.21 Personal history of antineoplastic chemotherapy; Z92.3 Personal history of irradiation; Z90.710 Acquired absence of both cervix and uterus
CPT/HCPCS: 82565; 84520; 74178; 36415; J1642; Q9967 ×2

== ENCOUNTER → 2020-12-17 | Outpatient (CLI) | payer MEDICARE ==
--- NOTE | 2020-12-17 15:44 | CT ---
EXAMINATION TYPE: CT abdomen pelvis wo/w con DATE OF EXAM: 12/17/2020 HISTORY: Malignant neoplasm of connective tissue CT DLP: 1266.5mGycm Automated Exposure Control for Dose Reduction was Utilized. CONTRAST: CT scan of the abdomen and pelvis is performed with oral and without and with IV Contrast, patient in jected with 100 mL of Isovue 300. COMPARISON: CT abdomen and pelvis August 25, 2020 and older studies FINDINGS: LUNG BASES: Redemonstration of slightly elevated right hemidiaphragm. Cqia-[id number]-[id number] linear scarrin g and/or atelectasis anteriorly in both bases redemonstrated. LIVER/GB: Cholecystectomy clips are redemonstrated. Persistent subcentimeter lesions in the right hep atic dome axial image 6 for reference too small to further characterize presumed benign. At the russel hepatis extending into the upper portal caval region there is redemonstration of low den se lesion surrounded by surgical clips measuring 9.1 cm long axis axial image 21 series 6 . This nasrin ures roughly 5.6 cm transversely axial image 20. Postcontrast images show some persistent heterogeneo us enhancement particularly posterior inferior nodular area seen best delayed phase image 21 series 8 , this is similar appearance to prior study. Mass effect on the subhepatic and proximal intrahepatic IVC pushed anteriorly and to right of midline is redemonstrated. Inferior extent to level of renal ve ins draining into IVC redemonstrated. PANCREAS: Redemonstration of stable diffuse pancreatic ductal dilatation and moderate generalized atr ophy. Head and neck portion of pancreas deviated inferiorly similar to prior. No significant interval change. SPLEEN: No significant abnormality is seen. ADRENALS: No significant abnormality is seen. KIDNEYS: No renal calculi. Symmetrical nodular uptake and excretion without hydronephrosis. Occasiona l subcentimeter low dense lesions throughout the left kidney. BOWEL: Oral contrast reaches level of proximal sigmoid colon. No suspicious small or large bowel dila tation. Contrast filled appendix from cecum in the right pelvis is within normal limits. Sigmoid colo zaheer diverticula are redemonstrated. No CT evidence for acute diverticulitis. No suspicious small larg e bowel dilatation. Mass effect on the gastroduodenal junction deviated anteriorly redemonstrated. UTERUS/ADNEXA: Uterus surgically absent. Scattered bilateral pelvic phleboliths. LYMPH NODES: No greater than 1cm abdominal or pelvic lymph nodes are appreciated. OSSEOUS STRUCTURES: Slight scoliotic curvature redemonstrated. Mild to moderate disc space narrowing L5-S1 level. Facet arthropathy lower lumbar levels. Mild to moderate narrowing and mild acetabular sp urring of both hip joints. OTHER: No significant additional abnormality is seen. IMPRESSION: No significant interval change in the complex low dense mass or lesion with some heteroge neous delayed enhancement centered at site of prior surgery russel hepatis. Local mass effect redemons trated. No new suspicious mass or adenopathy noted.
== END | disposition home or self-care (01) ==
LOC: RADCTMAIN 13:13
PROVIDERS: ATTEND Radiology Radiation Oncology
DX: C49.4 Malignant neoplasm of connective and soft tissue of abdomen (principal); Z90.710 Acquired absence of both cervix and uterus; Z92.3 Personal history of irradiation; Z92.21 Personal history of antineoplastic chemotherapy
CPT/HCPCS: 82565; 84520; 74178; 36415; Q9967

== ENCOUNTER → 2021-05-06 | Outpatient (CLI) | payer MEDICARE ==
--- NOTE | 2021-05-07 18:32 | CT ---
EXAMINATION TYPE: CT abdomen pelvis wo/w con DATE OF EXAM: 05/06/2021 COMPARISON: 12/17/2020, 08/25/2020 INDICATION: H/O connective tissue abd CA DLP: 1323.30 mGycm, Automated exposure control for dose reduction was used. CONTRAST: 100ml mL of Isovue 300. Study performed with Oral Contrast TECHNIQUE: Axial images were obtained from above the diaphragm to the pubic rami in the axial plane a t 5 mm thick sections. Reconstructed images are reviewed on the computer in the coronal plane. FINDINGS: Limited CT sections are obtained the lung bases. The lung bases are clear. CT ABDOMEN: Utilizing similar measurements, the soft tissue density posterior to the inferior vena ca va near the head of the pancreas measures 5.7 cm which is within measurement error on the prior 5.6 c m. Minimal increase in cranial caudal dimension from approximately 6 to 6.2 cm may be present Liver: Normal Spleen: Normal Pancreas: Pancreas remains atrophic. The pancreatic duct at the level of the mid body is 2.5 mm is deirdre rderline prominent. No increased from the comparison is evident. Adrenal glands: The adrenal glands are normal. Gallbladder: Surgically absent Kidneys: No masses are evident. No hydronephrosis is present. No cysts are present. Delayed images were obtained through the kidneys, which remain unremarkable. Aorta: Vascular calcification is within the aorta. Inferior vena cava: The inferior vena cava remains displaced by the soft tissue mass and appears gomes nt. CT PELVIS: There is difficulty visualizing the duodenum through this mass region. However, no evident obstructio n is evident oral contrast within small bowel loops as well as the colon to the splenic flexure. Coup le of diverticuli without acute diverticulitis are present.0 There are loops of bowel which are incom pletely distended or lack oral contrast limiting their evaluation. Appendix: Not identified. No dilated tubular structure or inflammatory changes evident. Urinary bladder: Normal. Genitourinary structures: Uterus and ovaries are not identified. Osseous structures: No suspicious lytic or sclerotic lesions. IMPRESSIONS: 1. There is a stable to minimal increase in size of a right upper quadrant soft tissue mass. Adjacen t pancreas liver and kidneys remain stable. No obstruction of the displaced inferior vena cava identi fied.
== END | disposition home or self-care (01) ==
LOC: RADCTMAIN 10:19
PROVIDERS: ATTEND Radiology Radiation Oncology
DX: C49.4 Malignant neoplasm of connective and soft tissue of abdomen (principal)
CPT/HCPCS: 74178; J1642; Q9967

== ENCOUNTER → 2021-10-12 | Outpatient (CLI) | payer MEDICARE ==
--- NOTE | 2021-10-12 16:48 | CT ---
EXAMINATION TYPE: CT abdomen pelvis wo/w con DATE OF EXAM: 10/12/2021 COMPARISON: 05/16/2021, 12/17/2020 INDICATION: h/o connective tissue CA DLP: 1064.6 mGycm, Automated exposure control for dose reduction was used. CONTRAST: 80 mL of Isovue 300. Study performed with Oral Contrast TECHNIQUE: Axial images were obtained from above the diaphragm to the pubic rami in the axial plane a t 5 mm thick sections. Reconstructed images are reviewed on the computer in the coronal plane. FINDINGS: Limited CT sections are obtained the lung bases. The lung bases are clear. CT ABDOMEN: Liver: Normal Spleen: Normal Pancreas: There is a complex hypoechoic collection at the head of the pancreas is currently estimated to measure 5.8 cm. Appearance is stable.r pancreatic duct at the body of the pancreas is 0.29 cm sim ilar to prior. Tail of pancreas appears atrophic. Pancreatic duct is well-visualized and tail of the pancreas. Interval dilatation is not evident. Adrenal glands: The adrenal glands are normal. Gallbladder: Surgically absent Kidneys: No masses are evident. No hydronephrosis is present. No cysts are present. Delayed images were obtained through the kidneys, which remain unremarkable. Aorta: Vascular calcification is within the aorta. Inferior vena cava: Normal. CT PELVIS: Loops of bowel within the abdomen and pelvis are normal. There are loops of bowel which are incom pletely distended or lack oral contrast limiting their evaluation. Fecal bolus at the level of the re ctum. Appendix: Normal as visualized. Urinary bladder: Normal. Genitourinary structures: Uterus and ovaries are not identified. Osseous structures: No suspicious lytic or sclerotic lesions. IMPRESSIONS: 1. Port Hepatis mass right upper quadrant currently measures 5.8 cm, which is 2 mm greater then Shukri [id number].
== END | disposition home or self-care (01) ==
LOC: RADPROMAIN 13:16
PROVIDERS: ATTEND Radiology Radiation Oncology
DX: K76.89 Other specified diseases of liver (principal); Z85.831 Personal history of malignant neoplasm of soft tissue
CPT/HCPCS: 82565; 84520; 74178; 36415; J1642; Q9967

== ENCOUNTER → 2022-05-03 | Outpatient (CLI) | payer MEDICARE ==
--- NOTE | 2022-05-03 15:20 | CT ---
EXAMINATION TYPE: CT abdomen pelvis wo/w con DATE OF EXAM: 05/03/2022 COMPARISON: CT dated 10/12/2021 HISTORY: f/u abdominal ca CT DLP: 2240 mGycm Automated exposure control for dose reduction was used. TECHNIQUE: Helical acquisition of images was performed from the lung bases through the pelvis. CONTRAST: Performed with Oral Contrast and without and with IV Contrast, patient injected with 70cc mL of Isovu e 300. FINDINGS: LUNG BASES: No significant abnormality is appreciated. LIVER/GB: Again noted is the partially cystic/necrotic mass centered over the posterior aspect of the russel hepatis measuring 6.4 cm compared to 5.8 cm previously. It is inseparable from the portal vein , adjacent portion of the liver, gastroduodenal junction, second part of the duodenum, IVC and right adrenal gland. Persistent calcification seen within the lesion. Suspected portacaval necrotic lymph n odes measuring up to 3.5 cm compared to 3.2 cm previously. This is probably invading the left renal v ein. 3.2 cm lesion seen at the anterior aspect of the right hepatic lobe, not appreciated in April CT scan and was not included in September 2021 CT scan. Ill-defined hypodensity seen at the inferior aspect of the right hepatic lobe measuring 2.4 cm, appreciated previously. Suspected previous cholec ystectomy. PANCREAS: Markedly atrophic SPLEEN: No significant abnormality is seen. ADRENALS: Unremarkable adrenals otherwise. KIDNEYS: Bilateral renal hypodensities, likely representing renal cysts. FREE AIR: No free air is visualized. RETROPERITONEAL ADENOPATHY: No other pathologically enlarged retroperitoneal lymph nodes. REPRODUCTIVE ORGANS: Previous hysterectomy. No gross adnexal mass. URINARY BLADDER: No significant abnormality is seen. PELVIC ADENOPATHY: No pathologically enlarged pelvic lymph nodes. OSSEOUS STRUCTURES: Diffuse osteopenia. No gross aggressive bone lesion. BOWEL: No evidence of bowel obstruction. Fecal loading of and scattered diverticulosis of the colon. OTHER: Arterial atherosclerotic calcification. No sizable ascites. Small right fat-containing inguina l hernia. IMPRESSION: Progressive disease as detailed above.
== END | disposition home or self-care (01) ==
LOC: RADPROMAIN 09:45
PROVIDERS: ATTEND Radiology Radiation Oncology
DX: C76.2 Malignant neoplasm of abdomen (principal)
CPT/HCPCS: 82565; 84520; 74178; 36415; J1642; Q9967

== ENCOUNTER → 2022-08-06 | Outpatient (CLI) | payer MEDICARE ==
--- NOTE | 2022-08-07 07:50 | CT ---
EXAMINATION TYPE: CT abdomen pelvis wo/w con CT DLP: 2494 mGycm, Automated exposure control for dose reduction was used. DATE OF EXAM: 08/06/2022 4:41 PM COMPARISON: CT abdomen pelvis most recent from 05/03/2022. CLINICAL INDICATION:[id number] years old with history of C49.4 MAL NEOPLASM ABD, Z85.831 HX OF MALIGNAN CY; Follow up for CA of abdominal soft tissue TECHNIQUE: Axial CT of the abdomen and pelvis. Sagittal and coronal reformats were created on a [employer] workstation. Contrast used:80cc mL of Isovue 300 with IV Contrast, Oral contrast used: with Oral Contrast FINDINGS: LOWER CHEST: Unremarkable ABDOMEN LIVER: Heterogenous mass in the dome of the right hepatic lobe measuring 3.4 x 3.0 cm is grossly juliet lar. Inferior aspect of the liver measuring 2.7 x 1.9 cm appears larger previously 2.4 x 1.5 cm. Ther e is suspected invasion into the left hepatic lobe is appreciated on series 8 image 31 which appears mildly increased. GALLBLADDER AND BILE DUCTS: Similar extrahepatic and mild intrahepatic biliary dilation. PANCREAS: Redemonstration of complex heterogenous mass centered around the pancreaticoduodenal groove /russel hepatis with areas of cystic degeneration and necrosis. Calcifications. Overall the mass nasrin ures similar to minimally larger at 8.1 x 5.7 x 5.7 cm exact measurements difficult given the lobulat ions. There are lobulations again seen extending posteriorly towards vertebral column. SPLEEN: Unremarkable. ADRENAL GLANDS: Unremarkable. KIDNEYS AND URETERS: No evidence of hydronephrosis or renal calculus. The ureters are unremarkable. PELVIS BLADDER: Unremarkable REPRODUCTIVE: Unremarkable. ABDOMEN & PELVIS STOMACH AND BOWEL: No evidence of bowel obstruction. PERITONEUM: No evidence of pneumoperitoneum or free fluid. VASCULATURE: No evidence of aortic aneurysm. Mild atherosclerosis of the arterial vasculature. MUSCULOSKELETAL: No acute osseous abnormalities, multilevel disc degeneration changes most pronounced at T11-T12 with osteophyte with at least moderate spinal canal stenosis. No suspicious osseous lesio n identified. LYMPH NODES: Previously identified lymph node near the confluence of the left renal vein and IVC is a gain seen with probable mass effect/invasion noted. This lymph node measures up to 3.7 x 2.8 cm, prev iously 3.4 x 2.0 cm. SOFT TISSUE/ABDOMINAL WALL: Unremarkable IMPRESSION: Overall the mass centered around the pancreaticoduodenal groove/russel hepatis is not significantly di fferent in morphology and may be minimally bigger. The right hepatic dome lesion is also felt to be s imilar in size given differences in technique while the invasion of the left hepatic lobe and right i nferior hepatic lobe lesions are larger.. Lymphadenopathy at the confluence of the left renal vein an d IVC appears larger when comparing to prior.
== END | disposition home or self-care (01) ==
LOC: RADPROMAIN 13:20
PROVIDERS: ATTEND Radiology Radiation Oncology
DX: Z08 Encounter for follow-up examination after completed treatment for malignant neoplasm (principal); C49.4 Malignant neoplasm of connective and soft tissue of abdomen; K76.9 Liver disease, unspecified; R59.0 Localized enlarged lymph nodes; Z85.831 Personal history of malignant neoplasm of soft tissue
CPT/HCPCS: 82565; 84520; 74178; 36415; J1642; Q9967 ×2

== ENCOUNTER 2022-08-30 08:52 | Day surgery (SDC) | payer MEDICARE ==
[2022-08-30 09:25] LABS: Mean Platelet Volume 7.9; Platelet Count 154 k/uL (150-450)
[2022-08-30 09:33] LABS: Prothrombin Time 10.5 sec (9.0-12.0)
[2022-08-30 09:39] VITALS: TEMP 97.9
--- NOTE | 2022-08-30 13:24 | CT ---
EXAMINATION TYPE: CT biopsy liver DATE OF EXAM: 08/30/2022 COMPARISON: NONE HISTORY: Liver mass CT DLP: 1336mGycm The procedure was explained to the patient. The risks, complications, benefits, and alternatives wer e discussed and any questions were answered. Informed consent was obtained. Patient was placed supi ne on the CT table and prepped and draped in the usual sterile fashion. All elements of maximal barrier and sterile technique utilized. Utilizing CT guidance, an 18 gauge core biopsy needle access into the right lobe of the liver was ac hieved and a single 18 gauge core sample was obtained. The patient was stable throughout the procedu re and remained stable upon discharge. IMPRESSION: 1. Successful 18 gauge core biopsy of the liver.
[2022-08-30 17:12] VITALS: RESP 16
[2022-08-30 17:16] VITALS: PULSE 62
[2022-08-30 17:20] VITALS: BP 113/71
== END 2022-08-30 14:24 | disposition home or self-care (01) ==
LOC: RADPROMAIN 08:52
PROVIDERS: ATTEND Internal Medicine Hematology & Oncology
DX: R16.0 Hepatomegaly, not elsewhere classified (principal)
CPT/HCPCS: 47000; 77012; 85049; 85610; 88307; 88341; 88342

== ENCOUNTER → 2022-09-13 | Outpatient (CLI) | payer MEDICARE ==
--- NOTE | 2022-09-13 11:34 | CT ---
EXAMINATION TYPE: CT chest wo con DATE OF EXAM: 09/13/2022 COMPARISON: Chest CT May 15, 2020 HISTORY: Liver CA CT DLP: 220.5 mGycm. Automated Exposure Control for Dose Reduction was Utilized. TECHNIQUE: CT scan of the thorax is performed without IV contrast. FINDINGS: LUNGS: Mild bibasilar linear scarring and/or atelectasis. Thin-walled 1.5 cm cyst left lung based on axial image 35 redemonstrated. No new nodules or masses. There is no pleural effusion or pneumothora x seen. The tracheobronchial tree is patent. MEDIASTINUM: Lack of IV contrast is noted to limit evaluation for mediastinal and especially hilar ad enopathy. There are no definitive new greater than 1 cm mediastinal lymph nodes. No cardiomegaly or pericardial effusion is seen. Partial visualization of left subclavian Mediport catheter. OTHER: Heterogeneous mass level russel hepatis with calcifications is redemonstrated measuring near 5. 4 x 5.0 cm axial image 48. Findings better evaluated on prior contrast-enhanced CT. Indistinct planes from adjacent bowel loops redemonstrated. Cholecystectomy clips anteriorly again seen. Vague hypoden se 3.2 cm lesion in the right hepatic lobe axial image 52 corresponds to site of recently biopsy-prov en neoplasm. IMPRESSION: No suspicious nodules or masses to suggest new metastatic disease to the thorax.
== END | disposition home or self-care (01) ==
LOC: RADCTMAIN 10:17
PROVIDERS: ATTEND Radiology Radiation Oncology
DX: C49.4 Malignant neoplasm of connective and soft tissue of abdomen (principal)
CPT/HCPCS: 71250

== ENCOUNTER → 2023-02-16 | Outpatient (CLI) | payer MEDICARE ==
[2023-02-16 08:39] LABS: ALT 268 U/L (4-34); AST 227 U/L (14-36); African American GFR (CKD) 65 (>60 ml/min/1.73 sqM); Albumin 3.9 g/dL (3.5-5.0); Albumin/Globulin Ratio 1.3; Alkaline Phosphatase 589 U/L (38-126); Anion Gap 8 mmol/L; Bilirubin, Conjugated 0.8 mg/dL (0.0-0.3); Bilirubin,Unconjugated 0.5 mg/dL (0.0-1.1); Blood Urea Nitrogen 14 mg/dL (7-17); Calcium 9.4 mg/dL (8.4-10.2); Carbon Dioxide 25 mmol/L (22-30); Chloride 105 mmol/L (98-107); Globulin 3.1 g/dL; Glucose 117 mg/dL (74-99); Non-African American GFR(CKD) 56 (>60 ml/min/1.73 sqM); Potassium 4.5 mmol/L (3.5-5.1); Sodium 138 mmol/L (137-145); Total Bilirubin 3.3 mg/dL (0.2-1.3)
--- NOTE | 2023-02-16 08:53 | US ---
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 h/o of cancerous lesion removed from abdominal wall in 2019, r enal disease, abd pain, US 3 weeks ago pain has increased in the past few weeks, cholecystectomy TECHNIQUE: Multiple sonographic images of the abdomen are obtained. FINDINGS: EXAM MEASUREMENTS: Liver Length: 15.1cm Gallbladder Wall: Surgically absent CBD: 0.6cm Spleen: 9.2cm Right Kidney: 7.2 x 3.9 x 4.8 cm Left Kidney: 9.6 x 4.5 x 5.3 cm FOREPART ROUNDER NOTES: bowel gas limits exam Pancreas: portions seen appear wnl Liver: heterogeneous with 2 lesions noted, one near russel hepatis = 5.5 x 6.6 x 3.6cm, and posterior lobe = 3.5 x 3.7 x 4.2cm Gallbladder: Surgically absent Evidence for sonographic Miles's sign: yes CBD: wnl Spleen: wnl Right Kidney: wnl Left Kidney: decreased corticomedullary differentiation, smaller in size Upper IVC: wnl Abd Aorta: limited views due to gas The intrahepatic portion of the IVC and proximal abdominal aorta are within normal limits Common bile duct is unremarkable. The visualized portions of the pancreas are homogenous. The spleen is unrema rkable. No renal lesions are seen. IMPRESSION: 1. Suspicious hepatic lesions. 2. Mildly atrophic left kidney with decreased corticomedullary differentiation.
== END | disposition home or self-care (01) ==
LOC: RADUSWWP 07:22
PROVIDERS: ATTEND Internal Medicine Hematology
DX: C78.7 Secondary malignant neoplasm of liver and intrahepatic bile duct (principal); C49.9 Malignant neoplasm of connective and soft tissue, unspecified; N26.1 Atrophy of kidney (terminal); E80.6 Other disorders of bilirubin metabolism; Z90.49 Acquired absence of other specified parts of digestive tract
CPT/HCPCS: 36415; 76700; 80053; 82248